=== PATIENT | female | born 1990 | race African-American/Black ===

== ENCOUNTER 2019-05-24 18:03 | Emergency (ER) | payer OTHER, SELFPAY ==
--- NOTE | 2019-05-24 18:11 | ED.NAVMDI ---
HPI - Nausea/Vomiting/Diarrhea General Chief complaint: Nausea/Vomiting/Diarrhea Stated complaint: Possible Food Posioning Time Seen by Provider: 05/24/19 18:11 Source: patient and RN notes reviewed Mode of arrival: ambulatory Limitations: no limitations History of Present Illness HPI Narrative: 28-year-old female presents with concern for red eyes, nausea, vomiting, diarrhea, itchy, burning skin on her face. Reports on Sunday she was seen in the emergency room after having a possible allergic reaction to a new muscle relaxer. Reports at that time she was given Benadryl, steroids. Reports her primary care doctor discontinued the steroids and Benadryl later this week because they were not helping . Patient reports at the beginning of the week she had a fever, had a temperature of 99.5 yesterday. She currently reports bilateral red eyes, nausea, body aches. She reports occasional cough, denies shortness of breath MD elicited complaint: nausea and vomiting Related Data Home Medications Medication Instructions Recorded Confirmed buspirone 10 mg PO DAILY 01/06/19 05/24/19 quetiapine 200 mg PO DAILY 01/07/19 05/24/19 citalopram 40 mg PO DAILY 05/24/19 05/24/19 diphenhydramine HCl [Banophen] 25 mg PO DIRECTED 05/24/19 05/24/19 famotidine 20 mg PO DAILY 05/24/19 05/24/19 multivitamin [Daily-David] 1 tablet PO DAILY 05/24/19 05/24/19 Allergies Allergy/AdvReac Type Severity Reaction Status Date / Time morphine Allergy Unknown Rash Verified 05/24/19 18:09 Penicillins Allergy Unknown rash, Verified 05/24/19 18:09 yeast infection strawberry Allergy Unknown Unknown Verified 05/24/19 18:09 BEES/HORNETS Allergy Unknown Unknown Uncoded 05/24/19 18:09 Review of Systems Review of Systems: Narrative: CONSTITUTIONAL: Denies malaise, chills, sweats. Reports fever. EYES: Denies visual changes. Reports bilateral redness, irritation ENT: Denies rhinorrhea, congestion. Denies sinus pain, otalgia or sore throat. CARDIOVASCULAR: Denies chest pain, palpitations, or edema. RESPIRATORY: Reports occasional cough. Denies dyspnea. GASTROINTESTINAL: Denies abdominal pain. Reports nausea, vomiting, diarrhea SKIN: Reports burning, itchy rash, peeling skin to face. MUSCULOSKELETAL: Reports myalgia. NEUROLOGIC: Reports headache. All systems reviewed & are unremarkable except as noted in HPI and below PMFSH Comments At time of signature, agree with nursing past medical, surgical, social and family history. There is no relevant family history pertinent to the presenting complaint Exam Narrative: Exam Narrative: GENERAL: Well-appearing, well-nourished, and in no acute distress. HEAD: Normocephalic EYES: PERRLA, conjunctivae and sclera injected, no drainage noted ENT: Nares clear, turbinates edematous and erythematous, clear discharge. Mucous membranes moist. TM pearly eric with dull light reflex bilaterally; no tragal tenderness. Oropharynx not erythematous without lesions. Tonsils not enlarged and without exudate, no drooling, no hoarseness, no trismus, uvula midline. NECK: Supple. No lymphadenopathy CHEST: Clear to auscultation, breath sounds equal. No wheezing, rhonchi, rales, or stridor. No respiratory distress, speaks in full sentences. HEART: Regular rate and rhythm. No murmur heard. ABDOMEN: Soft, nontender upon palpation, nondistended, normal active bowel sounds, no palpable or pulsatile masses, no guarding. SKIN: Warm, dry, no rash. Peeling skin noted to face NEURO: Alert and oriented x3. PSYCH: Normal mood and affect Course Course Emergency Course: Discussed with patient that she needs to follow-up with her primary care provider on Sunday for further evaluation, will treat symptomatically today. Also discussed with patient that an order will be sent in for coronavirus testing due to her fever, conjunctivitis, nausea, vomiting, diarrhea. Patient is aware of diagnosis, understands and agrees to treatment plan. Anticipatory guidance
[2019-05-24 18:13] VITALS: BP 91/67; PULSE 110; RESP 16; TEMP 37.2; O2SAT 99
== END 2019-05-24 18:38 | disposition home or self-care (01) ==
PROVIDERS: Emergency Provider Nurse Practitioner
DX: R09.81 Nasal congestion (principal); H10.9 Unspecified conjunctivitis; F20.9 Schizophrenia, unspecified; F32.9 Major depressive disorder, single episode, unspecified
CPT/HCPCS: 99213; G0463

== ENCOUNTER 2019-09-13 19:28 | Emergency (ER) | payer OTHER, MEDICAID, SELFPAY ==
[2019-09-13 19:53] VITALS: BP 102/68; PULSE 77; RESP 16; TEMP 37.4; O2SAT 100
--- NOTE | 2019-09-13 20:13 | ED.GENADULT ---
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 One episode of RT lower quadrant pain 1 day ago none at this time. No treatment. No significant pelvic pain. No dysuria. Denies fever or chills. No concerns for STDs. History of STDs. No new partners. Sexually active. Rosario denies having intercourse since . Denies unprotected intercourse and multiple partners. Does not douche. No exacerbating factors. Denies hematuria or vaginal bleeding. Denies being , LMP unknown recently had an .? No flank pain. Denies nausea, vomiting, and abdominal pain.? Tolerating liquids well.? Remains active. The patient reports she have not been diagnosed with COVID-19. The patient reports she is not waiting for the results of a COVID-19 lab test. The patient reports she do not have fever, chills, weakness, fatigue, or myalgia. The patient reports she do not have a new or worsening cough or shortness of breath. Denies chest pain. The patient reports she do not have any rhinorrhea, congestion, sore throat, and diarrhea. Denies recent traveling. Denies concerns for COVID-19 or exposures been home with limited outdoor exposure except for essential household needs, work, and return home. At this time, patient is not suspected of having COVID-19. Some parts of this dictation were generated by voice recognition software and may contain typographical and/or grammatical inaccuracies. Related Data Home Medications Medication Instructions Recorded Confirmed buspirone 10 mg PO DAILY 01/06/19 09/13/19 citalopram 40 mg PO DAILY 05/24/19 09/13/19 multivitamin [Daily-David] 1 tablet PO DAILY 05/24/19 09/13/19 Allergies Allergy/AdvReac Type Severity Reaction Status Date / Time morphine Allergy Unknown Rash Verified 09/13/19 19:45 Penicillins Allergy Unknown rash, Verified 09/13/19 19:45 yeast infection strawberry Allergy Unknown Unknown Verified 09/13/19 19:46 BEES/HORNETS Allergy Unknown Unknown Uncoded 09/13/19 19:46 Review of Systems Review of Systems: Narrative: CONSTITUTIONAL: Denies fever, chills, sweats. EYES: Denies visual changes, redness, discharge. ENT: Denies rhinorrhea, congestion, sore throat, otalgia. CARDIOVASCULAR: Denies chest pain, palpitations, edema. RESPIRATORY: Denies dyspnea, wheezing, cough. GASTROINTESTINAL: Denies abdominal pain, nausea, vomiting, diarrhea. GENITOURINARY: Denies hematuria, dysuria (burning, frequent, urgency). Complains of vaginal irritation, abnormal discharge. SKIN: Denies rash or itching. MUSCULOSKELETAL: Denies acute back pain, joint pain, or myalgia. NEUROLOGIC: Denies numbness or focal weakness. PSYCHIATRIC: Denies anxiety or depression. All systems reviewed & are unremarkable except as noted in HPI and below. [facility] Past Medical History Medical History (Updated 09/14/19 @ 00:00 by Miranda Noguera) Back pain Bipolar disorder Depression Schizophrenia Surgical History Surgical History (Updated 09/13/19 @ 20:38 by MARIANNE Zuniga) No significant past surgical history Family History Family History (Updated 09/13/19 @ 20:38 by MARIANNE Zuniga) Mother Depression Social History Social History (Updated 09/13/19 @ 20:39 by MARIANNE Zuniga) Smoking status: Never smoker Tobacco type: cigarettes Second hand tobacco smoke exposure: No Alcohol intake: current Substance use: never Living arrangements: with family Occupation/Education: occupation Addit
== END 2019-09-13 20:39 | disposition home or self-care (01) ==
PROVIDERS: Emergency Provider Nurse Practitioner Family
DX: N76.0 Acute vaginitis (principal); F20.9 Schizophrenia, unspecified; F31.9 Bipolar disorder, unspecified
CPT/HCPCS: 81003; 99213; G0463

== ENCOUNTER 2021-11-04 10:02 | Emergency (ER) | payer OTHER, SELFPAY ==
[2021-11-04 10:18] VITALS: BP 110/66; PULSE 77; RESP 16; TEMP 36.6; O2SAT 99
--- NOTE | 2021-11-04 10:57 | ED.FEMALEGU ---
HPI - Female Genitourinary General Chief complaint: Urogenital-Female Stated complaint: STD EXPOSURE Time Seen by Provider: 11/04/21 10:56 Source: patient and RN notes reviewed Mode of arrival: ambulatory Limitations: no limitations History of Present Illness HPI Narrative: 30-year-old female presents concern for exposure to trichomoniasis. She reports she was informed that her partner she had unprotected sex about Sunday was positive for trichomoniasis. She reports she has no symptoms. She reports she did take Flagyl recently for vaginitis but that was before her new exposure. MD elicited complaint: possible STD Related Data Home Medications Medication Instructions Recorded Confirmed buspirone 10 mg tablet 10 mg PO DAILY 01/06/19 09/13/19 citalopram 40 mg tablet 40 mg PO DAILY 05/24/19 09/13/19 multivitamin (Daily-David tablet) 1 tablet PO DAILY 05/24/19 09/13/19 Allergies Allergy/AdvReac Type Severity Reaction Status Date / Time morphine Allergy Unknown Rash Verified 11/04/21 10:23 Penicillins Allergy Unknown rash, Verified 11/04/21 10:23 yeast infection strawberry Allergy Unknown Unknown Verified 11/04/21 10:23 BEES/HORNETS Allergy Unknown Unknown Uncoded 11/04/21 10:23 Review of Systems Review of Systems: CONSTITUTIONAL: Denies malaise, chills, sweats, or fever. CARDIOVASCULAR: Denies chest pain, palpitations, or edema. RESPIRATORY: Denies cough or dyspnea. GASTROINTESTINAL: Denies abdominal pain, nausea, vomiting, diarrhea GENITOURINARY: Denies dysuria, frequency, urgency, suprapubic pressure. Denies flank pain or hematuria. SKIN: Denies rash or itching. MUSCULOSKELETAL: Denies back pain or myalgia. All systems reviewed & are unremarkable except as noted in HPI and below PMFSH Past Medical History Medical History (Updated 11/04/21 @ 11:06 by Denise Ram NP) Back pain Bipolar disorder Depression Schizophrenia Surgical History Surgical History (Updated 09/13/19 @ 20:38 by MARIANNE Zuniga) No significant past surgical history Family History Family History (Updated 09/13/19 @ 20:38 by MARIANNE Zuniga) Mother Depression Social History Social History (Updated 09/13/19 @ 20:39 by MARIANNE Zuniga) Smoking status: Never smoker Tobacco type: cigarettes Second hand tobacco smoke exposure: No Alcohol intake: current Substance use: never 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 There is no relevant family history pertinent to the presenting complaint Exam Narrative: GENERAL: Well-appearing, well-nourished, and in no acute distress. HEAD: Normocephalic. EYES: PERRLA, conjunctivae clear. NECK: Supple. No lymphadenopathy CHEST: Clear to auscultation. No respiratory distress. HEART: Regular rate and rhythm. SKIN: Warm, dry, no rash. NEURO: Alert and oriented x3. PSYCH: Normal mood and affect Course Course Emergency Course: Discussed treatment options with patient's. Discussed treating for the STD she was exposed to her treating for 3, given the patient is allergic to penicillin, she does not take Rocephin if she does have to. She understands that she may need to return for an injection based on test results. Patient is aware of diagnosis, understands and agrees to treatment plan. Anticipatory guidance given. Patient agrees to follow-up as directed and is aware of reasons to seek care at the emergency department. Portions of this record may have been created with voice recognition software Level of Care: Express Care Visit Vital Signs Vital signs: Vital Signs Temperature 97.9 F 11/04/21 10:18 Pulse Rate 77 11/04/21 10:18 Respiratory Rate 16 11/04/21 10:18 Blood Pressu
== END 2021-11-04 11:13 | disposition home or self-care (01) ==
PROVIDERS: Emergency Provider Nurse Practitioner; PCP Hospitalist
DX: Z20.2 Contact with and (suspected) exposure to infections with a predominantly sexual mode of transmission (principal); F32.A Depression, unspecified
CPT/HCPCS: 81003; 87491; 87591; 87661; 99214; G0463

== ENCOUNTER 2022-01-10 18:49 | Emergency (ER) | payer OTHER, SELFPAY ==
[2022-01-10 19:05] VITALS: BP 114/79; PULSE 75; RESP 16; TEMP 36.9; O2SAT 99
[2022-01-10 19:06] VITALS: BP 114/79; PULSE 75; RESP 16; TEMP 36.9; O2SAT 99
--- NOTE | 2022-01-10 19:39 | ED.FEMALEGU ---
HPI - Female Genitourinary General Chief complaint: Urogenital-Female Stated complaint: uti Time Seen by Provider: 01/10/22 19:40 Source: patient and RN notes reviewed Mode of arrival: ambulatory Limitations: no limitations History of Present Illness HPI Narrative: 31 y/o female presented for c/o urinary frequency and intermittent pain with urination for 2 days. Endorses thick white vaginal discharge. Denies odor, itching, hematuria, abdominal pain, flank pain, f/c. Endorses last sexual encounter the condom broke. Not taking anything for symptoms. LMP 12/20/21 Related Data Home Medications Medication Instructions Recorded Confirmed No Home Medications 01/10/22 01/10/22 Allergies Allergy/AdvReac Type Severity Reaction Status Date / Time morphine Allergy Unknown Rash Verified 01/10/22 19:05 Penicillins Allergy Unknown rash, Verified 01/10/22 19:05 yeast infection strawberry Allergy Unknown Unknown Verified 01/10/22 19:05 BEES/HORNETS Allergy Unknown Unknown Uncoded 01/10/22 19:05 Review of Systems Review of Systems: CONSTITUTIONAL: Denies body aches, fever, chills, or sweats. CARDIOVASCULAR: Denies chest pain, palpitations, or edema. RESPIRATORY: Denies cough or dyspnea. GASTROINTESTINAL: Denies abdominal pain, nausea, vomiting, or diarrhea. GENITOURINARY: Reports dysuria, frequency, urgency, denies hematuria, flank pain SKIN: Denies rash, itching, or wounds. MUSCULOSKELETAL: Denies back pain or myalgia. 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 Please see nursing chart for further information. There is no relevant family history pertinent to the presenting complaint Exam Narrative: GENERAL: Well-appearing ENT: Mucous membranes pink and moist. NECK: Normal AROM. Supple. CHEST: No respiratory distress. Clear to auscultation. HEART: Regular rate and rhythm. ABDOMEN: Soft, nontender, nondistended, normal active bowel sounds. No CVA tenderness MUSCULOSKELETAL: No bony tenderness. SKIN: Warm, dry, no rash. NEURO: No focal deficits. Alert and oriented x3. Gait steady. PSYCH: Normal affect. Course Course Emergency Course: Patient is aware of diagnosis, understands and agrees to treatment plan. Anticipatory guidance given. Patient agrees to follow-up as directed and is aware of reasons to seek care at the emergency department. Portions of this record may have been created with voice recognition software Level of Care: Express Care Visit Vital Signs Vital signs: Vital Signs Temperature 98.4 F 01/10/22 19:05 Pulse Rate 75 01/10/22 19:05 Respiratory Rate 16 01/10/22 19:05 Blood Pressure 114/79 01/10/22 19:05 Pulse Oximetry 99 01/10/22 19:05 Oxygen Delivery Room Air 01/10/22 19:05 Temperature 98.4 F 01/10/22 19:06 Pulse Rate 75 01/10/22 19:06 Respiratory Rate 16 01/10/22 19:06 Blood Pressure 114/79 01/10/22 19:06 Pulse Oximetry 99 01/10/22 19:06 Oxygen Delivery Room Air 01/10/22 19:06 Reviewed MDM - Female Genitourin
== END 2022-01-10 19:51 | disposition home or self-care (01) ==
PROVIDERS: Emergency Provider Nurse Practitioner Family; PCP Hospitalist
DX: R30.0 Dysuria (principal)
CPT/HCPCS: 81003; 87086; 87491; 87591; 87661; 99214; G0463

== ENCOUNTER 2023-02-15 10:05 | Emergency (ER) | payer OTHER, SELFPAY ==
[2023-02-15 10:27] VITALS: BP 107/68; PULSE 90; RESP 16; TEMP 37.6; O2SAT 100
--- NOTE | 2023-02-15 11:05 | ED.URI ---
HPI - URI/Sore Throat General Chief Complaint: Upper Respiratory Infection Stated Complaint: cough,scratchy throat,headache,bodyaches History of Present Illness HPI Narrative: 32-year-old female presented for complaint of nasal drainage, ear pain, dry, and sore throat for about 4 days. Endorses nausea and body aches as. Denies shortness of breath, wheezing, vomiting or fever. She is not taking anything for symptoms. children also with similar symptoms. Related Data Home Medications Medication Instructions Recorded Confirmed No Home Medications 02/15/23 02/15/23 Allergies Allergy/AdvReac Type Severity Reaction Status Date / Time morphine Allergy Unknown Rash Verified 02/15/23 10:34 Penicillins Allergy Unknown rash, Verified 02/15/23 10:34 yeast infection strawberry Allergy Unknown Unknown Verified 02/15/23 10:34 BEES/HORNETS Allergy Unknown Unknown Uncoded 01/10/22 19:05 Review of Systems Review of Systems: ROS per HPI PMFSH Past Medical History Medical History Back pain Bipolar disorder Depression Schizophrenia Surgical History Surgical History No significant past surgical history Family History Family History Mother Depression Social History Social History Smoking status: Never smoker Tobacco type: cigarettes Second hand tobacco smoke exposure: No Alcohol intake: current Substance use: never Living arrangements: with family Occupation/Education: occupation 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 EYES: conjunctivae clear ENT: Mucous membranes moist. TMs pearly eric with normal light reflex bilaterally; no tragal tenderness. Oropharynx milldy erythematous without lesions. Tonsils not enlarged and without exudate. No drooling, no hoarseness, no trismus, uvula midline. No tripod positioning, hot potato voice, or soft palate swelling. NECK: Supple. No lymphadenopathy CHEST: Clear to auscultation, breath sounds equal. No respiratory distress, speaks in full sentences. HEART: Regular rate and rhythm. No murmur heard. SKIN: Warm, dry, no rash. NEURO: Alert and oriented x3. Course Course Emergency Course: Patient is aware of diagnosis, understands and agrees to treatment plan. Anticipatory guidance given. Patient agrees to follow-up as directed and is aware of reasons to seek care at the emergency department. Portions of this record may have been created with voice recognition software Level of Care: Express Care Visit Vital Signs Vital signs: Vital Signs Temperature 99.6 F 02/15/23 10:27 Pulse Rate 90 02/15/23 10:27 Respiratory Rate 16 02/15/23 10:27 Blood Pressure 107/68 02/15/23 10:27 Pulse Oximetry 100 02/15/23 10:27 Oxygen Delivery Room Air 02/15/23 10:27 Temperature 99.6 F 02/15/23 10:27 Pulse Rate 90 02/15/23 10:27 Respiratory Rate 16 02/15/23 10:27 Blood Pressure 107/68 02/15/23 10:27 Pulse Oximetry 100 02/15/23 10:27 Oxygen Delivery Room Air 02/15/23 10:27 MDM - URI/Sore Throat MDM Narrative Medical decision making narrative: Negative flu, COVID, strep result reviewed with pt. Advise supportive treatments. reviewed signs and symptoms to go to the ER. Patient is appropriate for outpatient treatment and follow-up. Differential Diagnosis Differential diagnosis: Likely upper respiratory infection, viral infection and pharyngitis Lab Data Labs: Lab Results 02/15/23 Range/Units Unknown POC SARS CoV-2 Ag Negative (Negative) In
== END 2023-02-15 12:06 | disposition home or self-care (01) ==
PROVIDERS: Emergency Provider Nurse Practitioner Family; PCP Hospitalist
DX: J06.9 Acute upper respiratory infection, unspecified (principal); Z20.822 Contact with and (suspected) exposure to COVID-19
CPT/HCPCS: 87081; 87426; 87804; 87880; 99213; C9803; G0463

== ENCOUNTER 2023-10-16 16:01 | Emergency (ER) | payer BC, OTHER, SELFPAY ==
--- NOTE | 2023-10-16 16:10 | ED.URI ---
HPI - URI/Sore Throat General Chief Complaint: Upper Respiratory Infection Stated Complaint: congestion ,both ears hurt,cough,throat hurts Time Seen by Provider: 10/16/23 16:45 Source: patient and RN notes reviewed Mode of arrival: ambulatory Limitations: no limitations History of Present Illness HPI Narrative: 32-year-old female presents with concern for ear pain, sore throat, dry cough, mucus in her eyes this morning. She denies fever, aches, chills, sweats. Reports her children have similar symptoms. MD elicited complaint: cough and sore throat Related Data Allergies Allergy/AdvReac Type Severity Reaction Status Date / Time Penicillins Allergy Unknown rash, Verified 10/16/23 16:22 yeast infection strawberry Allergy Unknown Unknown Verified 10/16/23 16:22 BEES/HORNETS Allergy Unknown Unknown Uncoded 10/16/23 16:22 Review of Systems Review of Systems: CONSTITUTIONAL: Denies malaise, chills, sweats, or fever. EYES: Denies visual changes, redness. Reports drainage from her eyes this morning ENT: Reports rhinorrhea, congestion, sore throat. CARDIOVASCULAR: Denies chest pain, palpitations, or edema. RESPIRATORY: Reports cough. Denies dyspnea. GASTROINTESTINAL: Denies abdominal pain, nausea, vomiting, diarrhea SKIN: Denies rash or itching. MUSCULOSKELETAL: Denies myalgia. NEUROLOGIC: Denies headache. 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 There is no relevant family history pertinent to the presenting complaint Exam Narrative: GENERAL: Well-appearing, well-nourished, and in no acute distress. HEAD: Normocephalic EYES: PERRLA, conjunctivae clear ENT: Nares clear. Mucous membranes moist. TM pearly eric with dull light reflex bilaterally; no tragal tenderness. Oropharynx not erythematous without lesions. Tonsils not enlarged and without exudate, no drooling, no hoarseness, no trismus, uvula midline. NECK: Supple. No lymphadenopathy CHEST: Clear to auscultation, breath sounds equal. No wheezing, rhonchi, rales, or stridor. No respiratory distress, speaks in full sentences. HEART: Regular rate and rhythm. No murmur heard. SKIN: Warm, dry, no rash. NEURO: Alert and oriented x3. PSYCH: Normal mood and affect Course Course Emergency Course: Patient is aware of diagnosis, understands and agrees to treatment plan. Anticipatory guidance given. Patient agrees to follow-up as directed and is aware of reasons to seek care at the emergency department. Portions of this record may have been created with voice recognition software Level of Care: Express Care Visit Vital Signs Vital signs: Reviewed. MDM - URI/Sore Throat MDM Narrative Medical decision making narrative: Differential diagnosis considered: Wong virus, strep pharyngitis, allergic rhinitis, upper respiratory tract infection, sinusitis, rhinosinusitis, nasopharyngitis. viral pharyngitis, otitis media, otitis externa, pneumonia, bronchiti
[2023-10-16 16:27] VITALS: BP 110/67; PULSE 77; RESP 16; TEMP 37.6; O2SAT 100
[2023-10-16 16:57] LABS: EDSTREPNEGPOS1 Negative
== END 2023-10-16 17:21 | disposition home or self-care (01) ==
PROVIDERS: Emergency Provider Nurse Practitioner; PCP Hospitalist
DX: J06.9 Acute upper respiratory infection, unspecified (principal); Z20.822 Contact with and (suspected) exposure to COVID-19
CPT/HCPCS: 87081; 87426; 87880; 99213; G0463

== ENCOUNTER 2024-05-06 18:46 | Emergency (ER) | payer OTHER, SELFPAY ==
[2024-05-06 19:01] VITALS: BP 117/73; PULSE 73; RESP 16; TEMP 36.4; O2SAT 100
--- NOTE | 2024-05-06 19:27 | ED.EAR ---
HPI - Ear Problem General Chief complaint: Ear Stated complaint: pain on left side of face ear area Time Seen by Provider: 05/06/24 19:42 Source: patient and RN notes reviewed Mode of arrival: ambulatory Limitations: no limitations History of Present Illness HPI Narrative: 33-year-old female presents with concern for left ear pain, decreased hearing. She reports pain in the auricle of the ear and decreased hearing. Reports she feels a bump. She denies drainage. Denies fever, body aches, chills, sweats MD Complaint: ear pain Related Data Home Medications ?Medication ?Instructions ?Recorded ?Confirmed ?Last Taken ?Type buspirone 15 mg tablet mg 05/06/24 Unknown History citalopram 40 mg tablet mg 05/06/24 Unknown History Allergies Allergy/AdvReac Type Severity Reaction Status Date / Time Penicillins Allergy Unknown rash, Verified 05/06/24 19:05 yeast infection strawberry Allergy Unknown Unknown Verified 05/06/24 19:05 BEES/HORNETS Allergy Unknown Unknown Uncoded 05/06/24 19:05 Review of Systems Review of Systems: CONSTITUTIONAL: Denies malaise, chills, sweats, or fever. EYES: Denies visual changes, redness, or discharge. ENT: Denies rhinorrhea, congestion, sinus pain, and sore throat. Reports left ear pain and muffled hearing CARDIOVASCULAR: Denies chest pain, palpitations, or edema. RESPIRATORY: Denies cough. Denies dyspnea. GASTROINTESTINAL: Denies abdominal pain, nausea, vomiting, diarrhea SKIN: Denies rash or itching. MUSCULOSKELETAL: Denies myalgia. NEUROLOGIC: Denies headache. 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 There is no relevant family history pertinent to the presenting complaint Exam Narrative: GENERAL: Well-appearing, well-nourished, and in no acute distress. HEAD: Normocephalic EYES: PERRLA, conjunctivae clear ENT: Nares clear, turbinates edematous, clear discharge. Mucous membranes moist. TM pearly eric with dull light reflex bilaterally; left tragal tenderness with mild EAC edema, left work cold mildly edematous, and erythematous nodule noted at the top of the outer left ear, dried bloody drainage noted. No purulent drainage noted NECK: Supple. No lymphadenopathy CHEST: Clear to auscultation, breath sounds equal. No wheezing, rhonchi, rales, or stridor. No respiratory distress, speaks in full sentences. HEART: Regular rate and rhythm. No murmur heard. SKIN: Warm, dry, no rash. NEURO: Alert and oriented x3. PSYCH: Normal mood and affect Course Course Emergency Course: Patient is aware of diagnosis, understands and agrees to treatment plan. Anticipatory guidance given. Patient agrees to follow-up as directed and is aware of reasons to seek care at the emergency department. Portions of this record may have been created with voice recognition software Level of Care: Express Care Visit Vital Signs Vital signs: Vital Signs Temperature 97.5 F L 05/06/24 19:01 Pulse Rate 73 05/06/24 19:01 Respiratory Rate 16 05/06/24 19:01 Blood Pressure 117/73 05/06/24 19:01 Pulse Oximetry 100 05/06/24 19:01 Oxygen Delivery Room Air 05/06/24 19:01 Temperature 97.5 F L 05/06/24 19:01 Pulse Rate 73 05/06/24 19:01 Respiratory Rate 16 05/06/24 19:01 Blood Pressure 117/73 05/06/24 19:01 Pulse Oximetry 100 05/06/24 19:01 Oxygen Delivery Room Air 05/06/24 19:01 Reviewed. Medical Decision Making MDM Narrative Medical decision making narrative: I evaluated this in the express care. History is obtained from patient who is an independent historian and physical exam was performed.? Available medical records were reviewed. ? Exam findings show no acute concerns or changes; patient is non-toxic appearing and is in no distress. Differential diagnosis considered: Wong virus, strep pharyngitis, allergic rhinitis, upper respiratory tract infection, sinusitis, rhinosinusitis, nasopharyngitis. viral pharyngitis, otitis media, otitis externa, otitis effusion, cerumen impaction, foreign body. Exam findings show no acute concerns or changes; patient is non-toxic appearing and is in no distress. Patient is appropriate for outpatient treatment and follow-up. ? Differential diagnosis and treatment plan were discussed with the patient. Patient agrees with discussion and after shared medical decision making agrees with plan of care. All questions were answered to the patient's satisfaction. Patient is appropriate for outpatient treatment and follow-up. Vital Signs Vital Signs: Vital Signs Temperature 97.5 F L 05/06/24 19:01 Pulse Rate 73 05/06/24 19:01 Respiratory Rate 16 05/06/24 19:01 Blood Pressure 117/73 05/06/24 19:01 Pulse Oximetry 100 05/06/24 19:01 Oxygen Delivery Room Air 05/06/24 19:01 Temperature 97.5 F L 05/06/24 19:01 Pulse Rate 73 05/06/24 19:01 Respiratory Rate 16 05/06/24 19:01 Blood Pressure 117/73 05/06/24 19:01 Pulse Oximetry 100 05/06/24 19:01 Oxygen Delivery Room Air 05/06/24 19:01 Critical Care Time Critical Care Time Critical Care Time: No Discharge Plan Discharge Clinical Impression: Cellulitis of auricle of left ear Patient Disposition: Home, Self-Care Condition: Stable Instructions: Antibiotic Form, Cellulitis (ED) Additional Instructions: Please follow up with your Primary Care Doctor within 48-72 hours - call for an appointment. Apply moist heat 3-4 times daily for 10-15 minutes. Take Motrin 600mg every 8 hours with food for pain. Please take Antibiotics as directed. If you experience any worsening redness, swelling, streaking (red lines), fever or chills please go to the ER Patient Language: Upper Sorbian Prescriptions: New cefdinir 300 mg capsule 300 mg PO Q12H 10 Days Qty: 20 0RF No Action citalopram 40 mg tablet buspirone 15 mg tablet Follow-up/Referrals: Wilfredo,Nika Dobson MD [Primary Care Provider] - Stand Alone Forms: Work/School Release IP Time of Disposition: 19:53
== END 2024-05-06 19:55 | disposition home or self-care (01) ==
PROVIDERS: Emergency Provider Nurse Practitioner; PCP Hospitalist
DX: H60.12 Cellulitis of left external ear (principal)
CPT/HCPCS: 99213; G0463

== ENCOUNTER 2024-05-19 09:06 | Emergency (ER) | payer OTHER, SELFPAY ==
[2024-05-19 09:15] VITALS: BP 113/63; PULSE 81; RESP 20; TEMP 36.5; O2SAT 100
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
== END 2024-05-19 09:40 | disposition short-term general hospital (02) ==
PROVIDERS: Emergency Provider Nurse Practitioner Family; PCP Hospitalist
DX: H53.9 Unspecified visual disturbance (principal); R11.0 Nausea; R51.9 Headache, unspecified; V89.2XXA Person injured in unspecified motor-vehicle accident, traffic, initial encounter
CPT/HCPCS: 99213; G0463

== ENCOUNTER 2024-05-19 10:14 | Emergency (ER) | payer OTHER, SELFPAY ==
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
[2024-05-19 10:41] VITALS: BP 126/70; PULSE 78; RESP 16; TEMP 36.6; O2SAT 100
--- OUTSIDE RECORDS SUMMARY | 2024-05-19 11:31 | XMS_ITS | Encounter Summary ---
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 Name Role Phone Nika Villalobos MD Primary Care Pro vider Encounter Details Date Type Department Care Team (Late st Contact Info) Description 04/25/2024 Results Follow-Up [facility] Obstetrical Gynecology [address] [phone] Cynthia Mota MD [address] [place] [id number] Social History Tobacco Use Types Packs/Day Years Used Date Smoking Tobacco: Never Smokeless Tobacco: Never Alcohol Use Standard Drinks/Week Comments Yes 0 (1 standard drink = 0.6 oz pur e alcohol) occasionally AUDIT-C Answer Date Recorded Q1: How often do you have a drink containing alc ohol? 2-4 times a month 05/31/2023 Q2: How many drinks containi ng alcohol do you have on a typical day when you are drinking? 1 or 2 05/31/2023 Q3: How often do you have si x or more drinks on one occasion? Never 05/31/2023 PHQ-2 Answer Date Recorded PHQ-2 Total Score (If total score is 3 or more points, staff should administer the PHQ-9) 2 12/27/2023 Franklin Depression Scale Answer Date Recorded Franklin Depression Scale Total 6 11/21/2020 The thought of harming myself has occurred to me . Never 11/21/2020 PHQ-9 Answer Date Recorded PHQ-9 Total Score 9 12/27/2023 Personal Safety Answer Date Recorded Have you ever been in or are you currently in a harmful physical or emotional relationship or is someone making you feel afraid or unsafe? 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
--- OUTSIDE RECORDS SUMMARY | 2024-05-19 11:31 | XMS_ITS | Referral Summary ---
Author Organization [facility] at the Medical Office Building Address [address] [place] [phone] Care Team Providers Care Biology Faculty Member Name Role Phone Nika Villalobos MD Primary Care Pro vider Encounters Date Type Department Care Team Description 04/30/2024 Telephone [facility] Obstetrical Gynecology [address] [place] [phone] Cynthia Mota MD 04/25/2024 Telephone [facility] Obstetrical Gynecology [address] [place] [phone] Zenaida Bonilla MA 04/25/2024 Results Follow-Up [facility] Obstetrical Gynecology [address] [facility] [address] [place] [phone] Cynthia Mota MD 04/24/2024 10:25 AM CDT Lab [facility] [address] [place] [phone] Missed 04/21/2024 Telephone [facility] Obstetrical Gynecology [address] [place] [address] [place] [phone] Zenaida Bonilla MA vaginal dicharge/itchng 04/08/2024 10:00 AM AIRCREWMAN Office Visit [facility] Primary Care at [address] [place] [phone] Nika Villalobos MD Migraine without status migrainosus, not intractable, unspecified migraine type (Primary Dx); Iron deficiency anemia, unspecified iron deficiency anemia type; Pre-diabetes; Osteopenia of lumbar spine; Vitamin D deficiency; Seborrheic dermatitis, unspecified; Eczema, unspecified type 04/02/2024 Orders Only [facility] Obstetrical Gynecology [address] [place] [address] [address] [place] [phone] Cynthia Mota MD Positive test (Primary Dx) 03/06/2024 Orders Only [facility] Lab [facility] [place] [address] Nika Villalobos MD 03/06/2024 Telephone [facility] Primary Care at [address] [phone] Nika Villalobos MD Medical Question/Miscellane ous 03/06/2024 11:00 AM AIRCREWMAN Lab [facility] [address] [place] [phone] Need for hepatitis C screening test; Difficulty concentrating; Vitamin D deficiency; Annual physical exam; Abnormal hemoglobin 03/06/2024 10:00 AM AIRCREWMAN Office Visit [facility] Primary Care at [address] [phone] Nika Villalobos MD Concussion without loss of consciousness, subsequent encounter (Primary Dx); Migraine without status migrainosus, not intractable, unspecified migraine type; Difficulty concentrating; Iron deficiency anemia, unspecified iron deficiency anemia type; Annual physical exam; Vitamin D deficiency; Need for hepatitis C screening test 03/04/2024 Nurse Triage [facility] Primary Care at [address] [phone] Nika Villalobos MD 02/25/2024 11:43 PM AIRCREWMAN - 02/26/2024 12:26 AM AIRCREWMAN Emergency [facility] [address] [place] [phone] Fall, initial encounter (Primary Dx); Concussion without loss of consciousness, initial encounter Discharge Disposition: Discharge to home or self care from Last 3 Months Allergies Active Allergy Reactions Criticality Noted Date Comments Venom-Honey Bee Anaphylaxis High 09/23/2019 Penicillin G Rash Medium 03/03/2019 [place] Anaphylaxis High 09/23/2019 Wasp Venom Anaphylaxis High 09/23/2019 Medications tretinoin (RETIN-A) 0.025 % gel APPLY TO AFFECTED AREAS ON THE FACE NIGHTLY. 07/06/19 24 Active magnesium oxide (MAG-OX) 400 mg (241.3 mg elemental magnesium) tabletIndications: hypomagnesemia Take 1 tablet (400 mg total) by mouth daily 90 tablet 3 10/25/19 24 025 Active citalopram (CeleXA) 20 mg tablet Take 1 tablet (20 mg total) by mouth daily 12/13/19 24 Active QUEtiapine (SEROquel) 100 mg tablet Take 1 tablet (100 mg total) by mouth 2 (two) times a day 12/13/19 Active PNV with [id number] 27 mg iron- 1 mg tabletIndications: Annual physical exam Take 1 tablet by mouth daily 90 tablet 3 12/27/19 24 025 Active clindamycin (CLEOCIN T) 1 % lotionIndications: Acne Vulgaris Apply topically 2 (two) times a day 60 mL 12/27/19 24 Active lidocaine (LIDODERM) 5 %Indications:Pain Place 1 patch on the skin daily Use patch for 12 hours on, 12 hours off. Discard after each use 7 patch 02/25/19 25 Active naproxen (NAPROSYN) 500 mg tablet Take 1 tablet (500 mg total) by mouth 2 (two) times a day with meals 30 tablet 02/25/19 25 Active ondansetron ODT (ZOFRAN-ODT) 4 mg disintegrating tablet Take 1 tablet (4 mg total) by mouth every 8 (eight) hours as needed for nausea or vomiting 20 tablet 02/25/19 25 Active orphenadrine ER (NORFLEX) 100 mg 12 hr tabletIndications: Muscle Spasm Take 1 tablet (100 mg total) by mouth 2 (two) times a day for 14 days 28 tablet 02/25/19 25 Active busPIRone (BUSPAR) 15 mg tablet 02/14/19 25 Active ascorbic acid (VITAMIN C) 250 mg tabletIndications: Iron deficiency anemia, unspecified iron deficiency anemia type Take 1 tablet (250 mg total) by mouth every other day With iron 45 tablet 03/06/19 25 Active ferrous sulfate 325 mg (65 mg of elemental iron) tabletIndications: Iron Deficiency Anemia Take 325mg ferrous sulfate every other day. Take with 250mg ascorbic acid tablet of half a glass of orange juice to enhance absorption. Take two hours before, or four hours after, ingestion of antacids/heartb urn. Take separately from calcium-contain ing foods and beverages (milk), calcium supplements, cereals, dietary fiber, tea, coffee, and eggs. 45 tablet 3 03/06/19 25 Active ketoconazole (NIZORAL) 2 % shampooIndications :Seborrheic dermatitis, unspecified Apply topically 2 (two) times a week Apply to damp scalp, lather, leave on 10 minutes, and rinse 120 mL 04/10/19 25 Active clobetasoL (TEMOVATE) 0.05 % external solutionIndication s:Dermatosis of the Scalp Apply topically two times daily as needed to scalp for flaking and itching. Do not apply to face. 50 mL 04/08/19 25 Active SUMAtriptan (IMITREX) 100 mg tabletIndications: Migraine Take 1 tablet (100 mg total) by mouth once as needed for migraine for up to 1 dose May repeat after 2 hours. If requiring 2 doses can take 2 tablets (100mg) at first start of next migraine. Don't take 2 consecutive days and limit to no more than 2 days per week. 9 tablet 04/08/19 25 Active triamcinolone (KENALOG) 0.1 % ointmentIndication s:Eczema, unspecified type Apply topically two times daily as needed for rash on body. Do not apply to face or groin. 80 g 04/08/19 25 Active ergocalciferol (VITAMIN D) 50,000 unit capsuleIndications :Vitamin D deficiency Take 1 capsule (50,000 Units total) by mouth once a week 4 capsule 1 04/08/19 25 025 Active doxycycline (VIBRAMYCIN) 100 mg capsule Take one tablet, by mouth, twice daily for 7 days. 14 tablet 04/22/19 25 Active fluconazole (DIFLUCAN) 150 mg tablet Take 1 tablet (150 mg total) by mouth once for 1 dose 1 tablet 04/26/19 25 025 fluconazole (DIFLUCAN) 150 mg tablet Take 1 tablet (150 mg total) by mouth once for 1 dose 1 tablet 05/01/19 25 025 Active Problems Problem Noted Date Diagnosed Date Pre-diabetes 04/08/2024 Assessment & Plan (04/08/2024 10:22 AM AIRCREWMAN): Lab Results Component Value Date HGBA1C 6.3 (H) 03/06/2024 Uncontrolled Recommend healthy diet/regular exercise Recheck after 3m Acne vulgaris 12/27/2023 Assessment & Plan (12/27/2023 12:06 PM AIRCREWMAN): Refilled topical clindamycin Continue gentle cleanser Discussed risks of topical tretinoin if were to become Annual physical exam 11/04/2020 Assessment & Plan (12/27/2023 12:07 PM AIRCREWMAN): Tracking ovulation for contraception management, recommend PNV daily, discussed does not increase fertility, but decreases risk of defects Assessment & Plan (04/19/2023 6:57 AM AIRCREWMAN): Reviewed PMH & FH Reviewed medications and supplements HCM: orders placed as needed Counseled on healthy lifestyle Assessment & Plan (08/02/2021 6:45 AM CDT): PAP: following with video producer Planning : no, but not avoiding, recommend PNV Sexual transmitted infection testing: declines BP within normal limits PHQ Screening PHQ-9 Total Score: 7 Body mass index is 32.63 kg/m . Discussed diet and exercise Feels safe at home Discussed skin cancer prevention and screening: referral to production clerks supervisor Migraine without status migrainosus, not intract able 10/15/2019 Assessment & Plan (04/08/2024 10:17 AM AIRCREWMAN): Improved Continue magnesium Imitrex as needed, will increase to 100mg Assessment & Plan (03/06/2024 11:04 AM AIRCREWMAN): Uncontrolled, flared with concussion Continue magnesium Will add labetalol daily for prophylaxis Imitrex as needed Assessment & Plan (12/27/2023 12:06 PM AIRCREWMAN): controlled Continue magnesium daily Continue maxalt as needed Assessment & Plan (10/25/2023 9:49 AM CDT): UNcontrolled Side effects to propranolol Start magnesium Continue maxalt as needed Assessment & Plan (04/19/2023 6:58 AM AIRCREWMAN): Stable Taking propranolol as needed Continue maxalt as needed Assessment & Plan (02/28/2023 3:23 PM AIRCREWMAN): Stable Taking propranolol as needed Continue maxalt as needed Assessment & Plan (09/15/2022 2:15 PM CDT): Improved Taking propranolol as needed Will increase maxalt Assessment & Plan (05/18/2022 9:35 AM CDT): Uncontrolled Will start propranolol imitrex as needed Assessment & Plan (07/28/2021 1:34 PM CDT): Uncontrolled Add magnesium for prophylaxis Recommend discussing medications with psychiatry that can help Assessment & Plan (10/15/2019 11:14 AM CDT): Start 400mg magnesium and riboflavin daily Given handout on triggers to avoid Tried reaching psychiatrist Dr. Aguila Pandya to discuss starting topamax, but unable to reach him at this time Chronic midline low back pain without sciatica 0 04/16/2019 Assessment & Plan (04/19/2023 6:58 AM AIRCREWMAN): Upcoming appointment with orthopedics spine Assessment & Plan (07/28/2021 1:35 PM CDT): History of scoliosis, offered spine surgery referral, she defers currently Encouraged to schedule physical therapy, very likely has weak core as just had 5th baby Assessment & Plan (10/15/2019 11:14 AM CDT): Has scoliosis No red flags Not interested in surgery Encouraged patient to start PHYSICAL THERAPY Trial of lidocaine patches Consider muscle relaxers if not improving with above Bipolar 1 disorder 03/03/2019 Assessment & Plan (12/27/2023 12:06 PM AIRCREWMAN): Improved Following with psychiatrist Assessment & Plan (10/25/2023 9:55 AM CDT): Uncontrolled Given information for psychiatrist In meantime will restart previous medications at lower doses Assessment & Plan (04/19/2023 10:46 AM AIRCREWMAN): Working on establishing with psych Assessment & Plan (09/15/2022 2:52 PM CDT): Working on establishing with psych Assessment & Plan (05/18/2022 9:38 AM CDT): Encouraged follow up with psychiatry Assessment & Plan (07/28/2021 1:35 PM CDT): Denies SI Upcoming appointment with psychiatry Can continue atarax as needed Assessment & Plan (06/28/2021 7:05 AM CDT): Currently denies SI/HI States previously had no improvement on seroquel, celexa and buspar Advised to follow up with psychiatry, if unable to see soon can follow up to see what we can do Encouraged to follow up with counselor Assessment & Plan (10/15/2019 11:14 AM CDT): Following with psychiatry, saw recently Assessment & Plan (03/03/2019 3:34 PM AIRCREWMAN): Follows with psychiatry On 200mg seroquel, 40mg celexa and 10mg buspar TID Resolved Problems Problem Noted Date Diagnosed Date Resolved Date with 39 completed weeks gestation 11/19/2020 09/15/2022 Immunizations Immunization Administration Dates Next Due DTaP 07/05/1995, 4,10/15/1992,1991,07/27/1990 HPV9 09/22/2015 Hep B, Adolescent or Pediatric 06/27/2000,1999,10/29/1998 HiB 07/15/1995,10/15/1992,09/12/1991 Influenza, Split 12/23/2009 Influenza, Unspecified 11/22/2023(Deferr ed: Patient Refused),01/08/2023,11/21/2021(Deferred : Patient Refused),11/12/2017(Deferred: Patient Refused) MMR 07/05/1995,07/27/1990 OPV 07/05/1995, 3,09/12/1991,1990 Pfizer SARS-CoV-2 Monovalent Vaccination (12+ Yrs) PURPLE 12/22/2020,09/28/2020 Td, adsorbed 06/06/2004 Tdap 09/01/2020, 7,11/24/2013,2009 Social History Tobacco Use Types Packs/Day Years Used Date Smoking Tobacco: Never Smokeless Tobacco: Never Tobacco Cessation:Counseling Given: Not Answered Alcohol Use Standard Drinks/Week Comments Yes 0 [...] staff should administer the PHQ-9) 2 12/27/2023 [place] Depression Scale Answer Date Recorded [place] Depression Scale Total 6 11/21/2020 The thought [...] on file Legal Sex Female 4:15 AM AIRCREWMAN Gender Identity Female 06/27/2021 10:01 AM CDT Sexual Orientation Straight 06/27/2021 10 :01 AM CDT 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 Not on file Not on f ile Not on file Last Filed Vital Signs Vital Sign Reading Time Taken Comments Blood Pressure 118/68 04/08/2024 10:02 AM AIRCREWMAN Pulse 76 04/08/2024 10:02 AM AIRCREWMAN Temperature 36.8 C (98.3 F) 04/08/2024 10:02 AM AIRCREWMAN Respiratory Rate 18 04/08/2024 10:02 AM AIRCREWMAN Oxygen Saturation 99% 04/08/2024 10:02 AM AIRCREWMAN Inhaled Oxygen Concentration - - Weight 83 kg (183 lb) 04/08/2024 10:02 AM AIRCREWMAN Height 157.5 cm (5' 2 ) 04/08/2024 10:02 AM AIRCREWMAN Body Mass Index 33.47 04/08/2024 10:02 AM AIRCREWMAN Plan of Treatment Not on file Procedures Procedure Name Priority Date/Time Associated Diagnosis Comments HCG, BLOOD, QUANTITATIVE Routine 04/24/2024 10:30 AM CDT Missed IRON PROFILE W/ IBC Routine 03/06/2024 1 1:13 AM AIRCREWMAN Need for hepatitis C screening test EGFR Routine 03/06/2024 11:13 AM AIRCREWMAN Annual physical exam DIFFERENTIAL AUTO Routine 03/06/2024 11: 13 AM AIRCREWMAN Annual physical exam HEMOGLOBIN A1C Routine 03/06/2024 11:13 AM AIRCREWMAN Annual physical exam CBC WITH AUTO DIFFERENTIAL Routine 03/06/2024 11:13 AM AIRCREWMAN Annual physical exam COMPREHENSIVE METABOLIC PANEL Routine 03/06/2024 11:13 AM AIRCREWMAN Annual physical exam THYROID FUNCTION CASCADE Routine 03/06/2024 11:13 AM AIRCREWMAN Annual physical exam LIPID PANEL Routine 03/06/2024 11:13 AM AIRCREWMAN Annual physical exam VITAMIN D 25 HYDROXY Routine 03/06/2024 11:13 AM AIRCREWMAN Vitamin D deficiency VITAMIN B12 Routine 03/06/2024 11:13 AM AIRCREWMAN Difficulty concentrating HEPATITIS C ANTIBODY Routine 03/06/2024 11:13 AM AIRCREWMAN Need for hepatitis C screening test CT HEAD WO CONTRAST ED 02/25/2024 1 0:03 PM AIRCREWMAN XR SPINE LUMBAR 2 OR 3 VIEWS ED 02/25/2024 8:20 PM AIRCREWMAN XR CHEST 1 VIEW ED 02/25/2024 8:19 PM AIRCREWMAN INFLUENZA A/B, RSV, AND COVID-19 PCR Routine 02/25/2024 8:12 PM AIRCREWMAN PAP AND HIGH RISK HPV, REFLEX TO GENOTYPING Routine 08/08/2022 9:29 AM CDT Well woman exam from Last 3 Months or Most Recently Relevant to Health Maintenance Results * hCG, blood, quantitative (04/24/2024 10:30 AM CDT) hCG, quant <5.0 0.0 - 5.0 IUnits/L Comment: Interpretive Data Male: < 5 IU/L Non- premenopausal Female: <5 IU/L The [employer] hCG Beta Quant assay procedure was used. Results from different manufacturers or methods may not be comparable. Serial testing should be performed using the same method. Interpretive Data was last revised on 2023 Testing performed by: [facility], [address] [place] [address]., [id number] Blood 04/24/2024 10:3 0 AM CDT 04/24/2024 12:49 PM CDT Cynthia Mota MD LAB BLOOD ORDERABLES Edit ed Result - Final Performing Organization Address [facility] Co de Phone Number ADAM [address] [place] [address] * eGFR (03/06/2024 11:13 AM AIRCREWMAN) Pathologist [facility] eGFR >90 >=60 mL/min/1. 73 m2 Comment: Interpretive Data Reference Interval Normal >/= 90 mL/min/1.73m2 Mildly decreased* 60 - 89 mL/min/1.73m2 Mildly to moderately decreased 45 - 59 mL/min/1.73m2 Moderately to severely decreased 30 - 44 mL/min/1.73m2 Severely decreased 15 - 29 mL/min/1.73m2 Kidney Failure < 15 mL/min/1.73m2 *Relative to young adult level Estimated glomerular filtration rate is determined by the 2020 CKD-EPI equation recommended by the National Kidney Foundation (A Unifying Approach to GFR Estimation: Recommendations of the NKF-ASK Task Force on Reassessing the Inclusion of Race in Diagnosing Kidney Disease, JASN 2020). The CKD-EPI equation should not be used for patients with unstable renal function and has not been validated in children and those over 70. Current interpretive data was last reviewed 2020. Testing performed by: [address] [id number] Blood 03/06/2024 11:1 3 AM AIRCREWMAN 03/06/2024 12:37 PM AIRCREWMAN us Nika Villalobos MD LAB BLOOD ORDERAB LES Final Result Performing Organization Address City/[facility]/ZIP Co de Phone Number ADAM [address] [place] [address] * Differential, auto (03/06/2024 11:13 AM AIRCREWMAN) [facility] Neutrophil abs 3.1 1.5 - 6.5 K/cumm Comment:Testing performed by : [address] [place]., [address] Imm gran abs 0.0 0.0 - 0.1 K/cumm [facility] Comment:Testing performed by : [address] [address] Lymphocyte abs 2.2 0.8 - 3.3 K/cumm C[facility] Comment:Testing performed by : [address] [address] Monocyte abs 0.4 0.2 - 0.8 K/cumm [facility] Comment:Testing performed by : [address] [address] Eosinophil abs 0.0 0.0 - 0.5 K/cumm [facility] Comment:Testing performed by : [address] [address] Basophil abs 0.0 0.0 - 0.1 K/cumm [facility] Comment:Testing performed by : [address] [address] Neutrophil pct 54.6 % [facility] Comment: Interpretive Data Percent cell count reference ranges are not reported, since discordance with absolute values may lead to misinterpretation of CBC data. Current Interpretive Data was last revised on 2017. Testing performed by: [address] [address] Imm gran pct 0.3 % [facility] Comment: Interpretive Data Percent cell count reference ranges are not reported, since discordance with absolute values may lead to misinterpretation of CBC data. Current Interpretive Data was last revised on 2017. Testing performed by: [address] [address] Lymphocyte pct 37.8 % [facility] Comment: Interpretive Data Percent cell count reference ranges are not reported, since discordance with absolute values may lead to misinterpretation of CBC data. Current Interpretive Data was last revised on 2017. Testing performed by: [address] [address] Monocyte pct 6.3 % [facility] Comment: Interpretive Data Percent cell count reference ranges are not reported, since discordance with absolute values may lead to misinterpretation of CBC data. Current Interpretive Data was last revised on 2017. Testing performed by: [address] [address] Eosinophil pct 0.5 % [facility] Comment: Interpretive Data Percent cell count reference ranges are not reported, since discordance with absolute values may lead to misinterpretation of CBC data. Current Interpretive Data was last revised on 2017. Testing performed by: [address] [address] Basophil pct 0.5 % [facility] Comment: Interpretive Data Percent cell count reference ranges are not reported, since discordance with absolute values may lead to misinterpretation of CBC data. Current Interpretive Data was last revised on 2017. Testing performed by: [address] [address] Blood 03/06/2024 11:1 3 AM AIRCREWMAN 03/06/2024 12:37 PM AIRCREWMAN Nika Villalobos MD LAB BLOOD ORDERAB LES Final Result Performing Organization Address City/[facility]/ZIP Co de Phone Number [address] [place] [address] * Thyroid Function [place] (03/06/2024 11:13 AM AIRCREWMAN) TSH 1.46 0.30 - 4.20 mcIUnit/mL Comment:Testing performed by : [address] [address] Blood 03/06/2024 11:1 3 AM AIRCREWMAN 03/06/2024 12:37 PM AIRCREWMAN Nika Villalobos MD LAB BLOOD ORDERAB LES Final Result Performing Organization Address City/[facility]/ZIP Co de Phone Number [address] [place] [address] * (ABNORMAL) Iron profile w/ IBC (03/06/2024 11:13 AM AIRCREWMAN) Iron 30(L) 35 - 145 mcg/dL Comment:Testing performed by : [address] [address] TIBC 435(H) 250 - 400 mcg/dL ADAM MARIN Comment:Testing performed by : [address] [address] Transferrin saturation 7(L) 20 - 50 % ADAM MARIN Comment:Testing performed by : [address] [address] Blood 03/06/2024 11:1 3 AM AIRCREWMAN 03/06/2024 12:37 PM AIRCREWMAN us Nika Villalobos MD LAB BLOOD ORDERAB LES Final Result ADAM MARIN [facility] [place] [address] * (ABNORMAL) CBC with auto differential (03/06/2024 11:13 AM AIRCREWMAN) [facility] WBC 5.7 3.8 - 9.9 K/cumm Comment:Testing performed by : [address] [address] Hgb 10.5(L) 11.9 - 15.5 g/dL ADAM MARIN Comment:Testing performed by : [address] [address] Hct 33.6(L) 35.6 - 45.5 % ADAM MARIN Comment:Testing performed by : [address] [address] Plt 290 150 - 400 K/cumm ADAM MARIN Comment:Testing performed by : [address] [address] MPV 11.5 9.1 - 12.3 fL ADAM MARIN Comment:Testing performed by : [address] [address] RBC 3.92 3.90 - 5.20 M/cumm ADAM MARIN Comment:Testing performed by : [address] [address] MCV 85.7 81.3 - 96.4 fL ADAM MARIN Comment:Testing performed by : [facility], [address] [place] [address]., [address] MCH 26.8(L) 27.1 - 33.3 pg ADAM Comment:Testing performed by : [address] [address] MCHC 31.3(L) 32.3 - 35.7 g/dL ADAM Comment:Testing performed by : [address] [address] RDW CV 18.6(H) 11.1 - 14.9 % ADAM Comment:Testing performed by : [address] [address] RDW SD 57.7(H) 35.7 - 48.1 fL ADAM Comment:Testing performed by : [address] [address] NRBC abs 0.00 0.00 - 0.01 K/cumm ADAM Comment:Testing performed by : [address] [address] Blood 03/06/2024 11:1 3 AM AIRCREWMAN 03/06/2024 12:37 PM AIRCREWMAN Nika Villalobos MD LAB BLOOD ORDERAB LES Final Result [facility] [address] [facility] Department of Laboratories [place], [place] [id number] * Hepatitis C antibody Blood (03/06/2024 11:13 AM AIRCREWMAN) Hep C Ab Nonreactive Nonreactive Comment: Antibodies to HCV not detected. Does NOT exclude the possibility of recent exposure to HCV. Current interpretive data was last revised on 21 Interpretive Data Nonreactive: Antibodies to HCV not detected. Does NOT exclude the possibility of recent exposure to HCV. Equivocal: Equivocal for HCV antibodies. Supplemental molecular testing will be automatically performed to determine infection status in accordance with current CDC screening recommendations. Reactive: Positive for HCV antibodies. This may represent current or past HCV infection. Supplemental molecular testing will be automatically performed to determine current infection status in accordance with current CDC screening recommendations. Interpretive data was last revised on 2019. Blood 03/06/2024 11:1 3 AM AIRCREWMAN 03/06/2024 2:23 PM AIRCREWMAN us Nika Villalobos MD LAB MICROBIOLOGY - GENERAL ORDERABLES Final Result Performing Organization Address [facility] Co de Phone Number [place] [id number] [place] [address] * (ABNORMAL) Vitamin D 25 hydroxy (03/06/2024 11:13 AM AIRCREWMAN) Vitamin D 25-OH 17.0(L) 30.0 - 80.0 ng/mL Blood 03/06/2024 11:1 3 AM AIRCREWMAN 03/06/2024 2:23 PM AIRCREWMAN Result Coleen Villalobos MD LAB BLOOD ORDERAB LES Final Result Performing Organization Address [facility] de Phone Number CARMEN[address] [address] * (ABNORMAL) Hemoglobin A1c (03/06/2024 11:13 AM AIRCREWMAN) Pathologist [facility] Hgb A1C 6.3(H) 4.0 - 5.6 % Comment:Testing performed by : [address] [address] Estimated Average Glucose 134 mg/dL ADAM Comment: The ADA recommends reporting an estimated Average Glucose (eAG) with all Hemoglobin A1c results using the equation derived from a study of 507 normal and diabetic adults. Minority populations were underrepresented and children were not included. (Diabetes Care 31:9463-9124, 2008). The eAG is not equivalent to a fasting glucose. Testing performed by: [address] [address] Blood 03/06/2024 11:1 3 AM AIRCREWMAN 03/06/2024 12:37 PM AIRCREWMAN us Nika Villalobos MD LAB BLOOD ORDERAB LES Final Result Performing Organization Address City/[facility]/ZIP Co de Phone Number [place] [id number] [facility] [place] [address] * (ABNORMAL) Vitamin B12 (03/06/2024 11:13 AM AIRCREWMAN) Vitamin B12 1,662(H) 230 - 1,250 pg/mL Comment:Testing performed by : [address] [address] Blood 03/06/2024 11:1 3 AM AIRCREWMAN 03/06/2024 12:37 PM AIRCREWMAN Nika Villalobos MD LAB BLOOD ORDERAB LES Final Result Performing Organization Address [facility] Co de Phone Number [place] [phone] [place] [address] * Lipid panel (03/06/2024 11:13 AM AIRCREWMAN) Cholesterol 179 30 - 199 mg/dL Comment: Interpretive Data Ages < or = 19 years Acceptable: <170 mg/dL Borderline high: 170-199 mg/dL High: >or= 200 mg/dL Ages > or = 20 years Desirable: <200 mg/dL Borderline high: 200-239 mg/dL High: >or= 240 mg/dL Literature References: 1. Expert Panel on Integrated Guidelines for Cardiovascular Health and Risk Reduction in Children and Adolescents. Pediatrics 2011;128:S213 2. NCEP Expert Panel. Circulation 2004;110:227 Current Interpretive Data was last revised on 2017. Testing performed by: [address] [address] Triglycerides 101 <=149 mg/dL ADAM Comment: Interpretive Data Ages < or = 9 years Acceptable: <75 mg/dL Borderline high: 75-99 mg/dL High: >or= 100 mg/dL Ages 10 to 20 years Acceptable: <90 mg/dL Borderline high: 90-129 mg/dL High: >or= 130 mg/dL Ages > or = 20 years Desirable: <150 mg/dL Borderline high: 150-199 mg/dL High: 200-499 mg/dL Very high: >or= 499 mg/dL Literature References: 1. Expert Panel on Integrated Guidelines for Cardiovascular Health and Risk Reduction in Children and Adolescents. Pediatrics 2011;128:S213 2. NCEP Expert Panel. Circulation 2004;110:227 Current Interpretive Data was last revised on 2017. Testing performed by: [address] [address] HDL 49 >=40 mg/dL ADAM Comment: Interpretive Data Ages < or = 19 years Acceptable: >45 mg/dL Borderline low: 40-45 mg/dL Low: <40 mg/dL Ages > or = 20 years Desirable: >or= 60 mg/dL Low: <40 mg/dL Literature References: 1. Expert Panel on Integrated Guidelines for Cardiovascular Health and Risk Reduction in Children and Adolescents. Pediatrics 2011;128:S213 2. NCEP Expert Panel. Circulation 2004;110:227 Current Interpretive Data was last revised on 2017. Testing performed by: [address] [address] LDL, calculated 112 <=129 mg/dL ADAM Comment: Interpretive Data Ages < or = 19 years Acceptable: <110 mg/dL Borderline high: 110-129 mg/dL High: >or= 130 mg/dL Ages > or = 20 years Optimal: <100 mg/dL Near optimal: 100-129 mg/dL Borderline high: 130-159 mg/dL High: >160 mg/dL Calculated using the Matheus LDL-C estimating equation. This equation was implemented on 2023. Prior to this date LDL-C was estimated using the Friedewald equation. Literature References: 1. Expert Panel on Integrated Guidelines for Cardiovascular Health and Risk Reduction in Children and Adolescents. Pediatrics 2011;128:S213 2. NCEP Expert Panel. Circulation 2004;110:227 3. Matheus Anna al. SHAHRAM Cardiol. 2020 June 12;5(5):540-548. doi: 10.1001/[email or web address].2020.0013 Current Interpretive Data was last revised on 2023. Testing performed by: [address] [address] Non-HDL Cholesterol 130 mg/dL ADAM Comment: Interpretive Data Ages < or = 19 years Acceptable: <120 mg/dL Borderline high: 120-144 mg/dL High: >145 mg/dL Ages > or = 20 years When triglycerides are >200 mg/dL, Non-HDL cholesterol is a secondary target of therapy with treatment goals that are 30 mg/dL greater than the LDL cholesterol target. Literature References: 1. Expert Panel on Integrated Guidelines for Cardiovascular Health and Risk Reduction in Children and Adolescents. Pediatrics 2011;128:S213 2. NCEP Expert Panel. Circulation 2004;110:227 Current Interpretive Data was last revised on 2017. Testing performed by: [address] [address] Chol/HDL ratio 4 ADAM Comment:Testing performed by : [address] [address] Blood 03/06/2024 11:1 3 AM AIRCREWMAN 03/06/2024 12:37 PM AIRCREWMAN Nika Villalobos MD LAB BLOOD ORDERAB LES Final Result ADAM [address] [facility] [place] [address] * Comprehensive metabolic panel (03/06/2024 11:13 AM AIRCREWMAN) Sodium 138 135 - 145 mmol/L Comment:Testing performed by : [address] [address] Potassium, pl 4.1 3.3 - 4.9 mmol/L ADAM MARIN Comment:Testing performed by : [address] [address] Chloride 102 97 - 110 mmol/L ADAM Comment:Testing performed by : [address] [address] CO2 28 22 - 32 mmol/L ADAM MARIN Comment:Testing performed by : [address] [address] Anion gap 8 2 - 15 mmol/L ADAM MARIN Comment:Testing performed by : [address] [address] BUN 14 6 - 25 mg/dL ADAM Comment:Testing performed by : [address] [address] Creatinine 0.64 0.60 - 1.10 mg/dL ADAM Comment:Testing performed by : [address] [address] Glucose 91 70 - 199 mg/dL [facility] Comment: Interpretive Data Fasting glucose >/= 126 mg/dl is diagnostic for diabetes. Fasting is defined as no caloric intake for at least 8 hours. Fasting glucose between 100 mg/dl to 125 mg/dl is diagnostic of prediabetes. In a patient with classic symptoms of hyperglycemia or hyperglycemic crisis, a random glucose >/= 200 mg/dl is diagnostic for diabetes. In the absence of unequivocal hyperglycemia, results should be confirmed by repeat testing. The classification and Diagnosis of Diabetes Diabetes Care 202; 46: S19-S40. Current interpretive data was last revised 2022. Testing performed by: [address] [address] Calcium 9.9 8.5 - 10.3 mg/dL [facility] Comment:Testing performed by : [address] [address] Bilirubin, total 0.2 0.1 - 1.2 mg/dL [facility] Comment:Testing performed by : [address] [address] Protein, pl 7.9 6.5 - 8.5 g/dL ADAM Comment:Testing performed by : [address] [address] Albumin 4.2 3.5 - 5.0 g/dL [facility] Comment:Testing performed by : [address] [address] Alk phos 71 40 - 130 Units/L ADAM Comment:Testing performed by : [address] [address] ALT 15 7 - 45 Units/L ADAM Comment:Testing performed by : [address] [address] AST 28 10 - 45 Units/L ADAM Comment:Testing performed by : [place] [address], [place]., [address] Blood 03/06/2024 11:1 3 AM AIRCREWMAN 03/06/2024 12:37 PM AIRCREWMAN us Nika Villalobos MD LAB BLOOD ORDERAB LES Final Result ADAM [address] [facility] [place] [address] * CT Head WO Contrast (02/25/2024 10:03 PM AIRCREWMAN) Anatomical Region Laterality Modality Head and Neck N/A Computed Tomogra phy 02/25/2024 10:2 4 PM AIRCREWMAN Narrative 02/25/2024 10:25 PM AIRCREWMAN EXAM DESCRIPTION: CT HEAD WO CONTRAST REASON FOR STUDY: Head trauma, moderate-severe Pt here with c/o fall on , pt states she slipped on black ice and fell on her back and hit her head, pt states she was dazed, denies loc, pt states since she has been having back pain and headache, pt states pain 8/10, pt states she is 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, 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 TECHNIQUE: Axial images acquired through the brain without intravenous contrast. Images stored on PACS. Automated exposure control was used as a dose optimization technique for this examination. COMPARISON: None FINDINGS: The study is significantly hampered metallic artifact from external devices. BRAIN: No hemorrhage, edema or mass effect. No recent infarct. Normal white matter. EXTRA-AXIAL SPACES: No fluid collections. No masses. CALVARIUM: No fracture. SINUSES/MASTOIDS: No fluid or mucosal thickening. ORBITS: No significant abnormality. OTHER: No other significant abnormality. IMPRESSION: No acute intracranial findings. THIS IS AN ELECTRONICALLY VERIFIED FINAL REPORT 02/25/2024 10:25 PM - Electronically signed by Martín Bolivar M.D. 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 TECHNIQUE: Axial images acquired through the brain without intravenous contrast. Images stored on PACS. Automated exposure control was used asa dose optimization technique for this examination. COMPARISON: None FINDINGS: The study is significantly hampered metallic artifact fromexternal devices. BRAIN: No hemorrhage, edema or mass effect. No recent infarct. Normal white matter. EXTRA-AXIAL SPACES: No fluid collections. No masses. CALVARIUM: No fracture. SINUSES/MASTOIDS: No fluid or mucosal thickening. ORBITS: No significant abnormality. OTHER: No other significant abnormality. IMPRESSION: No acute intracranial findings. THIS IS AN ELECTRONICALLY VERIFIED FINAL REPORT 02/25/2024 10:25 PM - Electronically signed by Martín Bolivar M.D. T: Report ID: [id number] Reading Location: [place] [address] [address] PROCEDURES Final Resu lt * XR Spine Lumbar 2 or 3 Views (02/25/2024 8:20 PM AIRCREWMAN) Anatomical Region Laterality Modality Spine N/A Computed Radiogr aphy 02/25/2024 8:55 PM AIRCREWMAN Narrative 02/25/2024 8:57 PM AIRCREWMAN EXAM DESCRIPTION: XR SPINE LUMBAR 2 OR 3 VIEWS REASON FOR STUDY: back pain Pain to lower back post fall on ice x4 days TECHNIQUE: 3 radiographic view(s) of the lumbar spine. COMPARISON: 04/16/2019 FINDINGS: ALIGNMENT: Mild dextroscoliosis centered in the mid lumbar spine is noted VERTEBRAE: Vertebral bodies of normal height. The bones are somewhat osteopenic DISCS: Disc height well-maintained. SOFT TISSUES: Within normal limits. IMPRESSION: No acute spinal abnormality. Osteopenia and mild scoliosis is noted THIS IS AN ELECTRONICALLY VERIFIED FINAL REPORT 02/25/2024 8:57 PM - Electronically signed by Martín Bolivar M.D. KH T: Report ID: [id number] Reading Location: [place] [address] Procedure Note Martín Bolivar MD - 02/25/2024 EXAM DESCRIPTION: XR SPINE LUMBAR 2 OR 3 VIEWS REASON FOR STUDY: back pain Pain to lower back post fall on ice x4 days TECHNIQUE: 3 radiographic view(s) of the lumbar spine. COMPARISON: 04/16/2019 FINDINGS: ALIGNMENT: Mild dextroscoliosis centered in the mid lumbar spineis noted VERTEBRAE: Vertebral bodies of normal height. The bones are somewhatosteopenic DISCS: Disc height well-maintained. SOFT TISSUES: Within normal limits. IMPRESSION: No acute spinal abnormality. Osteopenia and mild scoliosisis noted THIS IS AN ELECTRONICALLY VERIFIED FINAL REPORT 02/25/2024 8:57 PM - Electronically signed by Martín Bolivar M.D. KH T: Report ID: [id number] Reading Location: [place] [address] us [facility] IMG XR PROCEDURES Final Resu lt * XR Chest 1 Vw Portable (02/25/2024 8:19 PM AIRCREWMAN) Anatomical Region Laterality Modality Body, Chest N/A Computed Radiogr aphy 02/25/2024 8:55 PM AIRCREWMAN Narrative 02/25/2024 8:55 PM AIRCREWMAN EXAM DESCRIPTION: XR CHEST 1 VIEW REASON FOR STUDY: Cough Intermittent cp x10 days TECHNIQUE: Single radiographic view(s) of the chest. COMPARISON: None FINDINGS: LUNGS: Allowing for overlying soft tissues, the lungs appear grossly clear. No consolidation or effusion is seen. HEART/MEDIASTINUM: Cardiac silhouette normal in size. Mediastinal and hilar contours appear normal. LINES/TUBES: None. BONES: No acute osseous abnormality. IMPRESSION: No acute cardiopulmonary abnormality. THIS IS AN ELECTRONICALLY VERIFIED FINAL REPORT 02/25/2024 8:55 PM - Electronically signed by Martín GERARD T: Report ID: [id number] Reading Location: [place] [address] Procedure Note Martín Bolivar MD - 02/25/2024 EXAM DESCRIPTION: XR CHEST 1 VIEW REASON FOR STUDY: Cough Intermittent cp x10 days TECHNIQUE: Single radiographic view(s) of the chest. COMPARISON: None FINDINGS: LUNGS: Allowing for overlying soft tissues, the lungs appear grossly clear. No consolidation or effusion is seen. HEART/MEDIASTINUM: Cardiac silhouette normal in size. Mediastinal andhilar contours appear normal. LINES/TUBES: None. BONES: No acute osseous abnormality. IMPRESSION: No acute cardiopulmonary abnormality. THIS IS AN ELECTRONICALLY VERIFIED FINAL REPORT 02/25/2024 8:55 PM - Electronically signed by Martín Bolivar M.D. KH T: Report ID: [id number] Reading Location: [place] [address] [facility] XR PROCEDURES Final Resu lt * Influenza A/B, RSV, and COVID-19 PCR Nasopharyngeal (02/25/2024 8:12 PM AIRCREWMAN) COVID-19 RNA Negative Negative Influenza A RNA Negative Negative ADAM Influenza B RNA Negative Negative ADAM RSV RNA Negative Negative ADAM Comment: Interpretive data: Testing performed by [facility]. This test is performed using the [employer] Xpert Xpress CoV-2/Flu/RSV plus assay. This is a multiplex, real-time reverse transcriptase PCR assay intended for the qualitative detection of nucleic acid from SARS-CoV-2, influenza A, influenza B, and respiratory syncytial virus. This assay has been cleared by the [place] Food and Drug administration. The performance characteristics have been verified by the [facility]. Results must be considered in the clinical context, and a negative result does not rule out infection. Interpretive Data last revised 2023 Nasopharyngeal 02/25/2024 8: 12 PM AIRCREWMAN 02/25/2024 8:14 PM AIRCREWMAN Narrative ADAM - 02/25/2024 8:54 PM AIRCREWMAN Is the Patient experiencing symptoms consistent with COVID?->Yes us [facility] LAB MICROBIOLOGY - GENERAL O RDERABLES Final Result ADAM [address] [facility] [place] [address] * Pap and High Risk HPV, reflex to Genotyping (08/08/2022 9:29 AM CDT) Thin prep (Pap test) 08/08/2022 9:29 AM CDT 08/10/2022 9:29 AM CDT Narrative PATHOLOGY [facility] - 08/16/2022 12:41 PM CDT [facility] Department of Pathology [address] [place], [place] [id number] Final Report with Addendum Note to Patients: This report may contain a detailed description of human tissue sent by a health care provider to the laboratory for pathologic evaluation. The content of this report is essential for diagnosis and may provide important critical findings. This information may be unfamiliar to patients to review without a medical professional present. It is advised that the patient review this report in the presence of a health care provider who can answer questions and explain the details. Patient Name: ROSARIO LALA Address: [address] [place] [address] Gender: F : 1990 (Age: 31) Service: Location: [facility] #: [id number] Patient Type: [facility] SPECIMEN Taken: 08/08/2022 Received: 08/10/2022 Accessioned:: 08/11/2022 Reported: 08/16/2022 Physician(s): Cynthia Mota M.D. [facility] Diagnosis: SOURCE OF SPECIMEN SCREENING THIN PREP IMAGED PAP w/ HPV: STATEMENT OF ADEQUACY - Satisfactory for evaluation; endocervical/transformation zone component present GENERAL CATEGORIZATION: - Negative for intraepithelial lesion or malignancy PADMINI Nair(ASCP) Report Electronically Reviewed and Signed Out By MAILE NairASCP) 08/16/2022 12:41:32Addenda: HPV Test Interpretation NEGATIVE for types 16, 18, 31, 33, 35, 39, 45, 51, 52, 56, 58, 59, 66 and 68. Test performed utilizing Gen-Probe Aptima assay. PADMINI Ashley(ASCP)Report Electronically Reviewed and Signed Out By MAILE AshleyASCP) 08/14/2022 11:14:09 Specimen(s) Received: A: SCREENING THIN PREP IMAGED PAP w/ HPV Clinical History: Last Menstrual Period: 07/2022 The Pap test is a screening test used to aid in the detection of cervical cancer and its precursors. It should not be the sole means by which malignant and premalignant lesions are diagnosed. Both false negative and false positive results may occur. It also has poor sensitivity for the detection of endometrial lesions and should not be used to evaluate suspected endometrial abnormalities. For these reasons it is most important to obtain Pap tests at regular intervals. The performance characteristics of some immunohistochemical stains, fluorescence in-situ hybridization tests and immunophenotyping by flow cytometry cited in this report (if any) were determined by the Surgical Pathology Department at [facility] as part of an ongoing supplier quality engineer program and in compliance with federally mandated regulations drawn from the Clinical Laboratory Improvement Act of 1988 (CLIA '88). Some of these tests rely on the use of analyte specific reagents and are subject to specific labeling requirements by the US Food and Drug Administration. Such diagnostic tests may only be performed in a facility that is certified by the Department of Health and Human Services as a high complexity laboratory under CLIA '88. The FDA has determined that such clearance or approval is not necessary. This test is used for clinical purposes. It should not be regarded as investigational or for research. Nevertheless, federal rules concerning the medical use of analyte specific reagents require that the following disclaimer be attached to the report: This test was developed and its performance characteristics determined by the Surgical Pathology Department [facility]. It has not been cleared or approved by the U. S. Food and Drug Administration. Cynthia Mota MD LAB CYTOLOGY ORDERABLES F inal Result PATHOLOGY MB from Last 3 Months or Most Recently Relevant to Health Maintenance Insurance [facility] Advance Directives For more information, please contact: [phone] * Full Code (Latest Code Status on File) Date Activated Date Inactivated Comments 11/19/2020 6:38 PM 11/21/2020 7:29 PM * Full Code Date Activated Date Inactivated Comments 11/19/2020 2:03 AM 11/19/2020 6:38 PM Full CPR in case of cardiopulmonary arrest Care Teams Biology Faculty Member Relationship Specialty Start Date End Date Nika Villalobos MD PCP - General Family Medicine 02/26/19
--- OUTSIDE RECORDS SUMMARY | 2024-05-19 11:31 | XMS_ITS | Encounter Summary ---
Author Organization [facility] Healthcare Address [address] [place] [address] Care Team Providers Care Band Splicer Name Role Phone Nika Villalobos MD Primary Care Pro vider Reason for Visit * Reason Onset Date Comments Concussion 03/04/2024 Encounter Details Date Type Department Care Team ([facility] st Contact Info) Description 03/04/2024 Nurse Triage [facility] Primary Care at [address] [phone] Nika Villalobos MD [address] [place] [phone] Social History Tobacco Use Types Packs/Day [...] staff should administer the PHQ-9) 2 12/27/2023 [place] Depression Scale Answer Date Recorded [place] Depression Scale Total 6 11/21/2020 The thought [...] on file Legal Sex Female 4:15 AM CLERK TELEGRAPH SERVICE Gender Identity Female 06/27/2021 10:01 AM CDT Sexual Orientation Straight 06/27/2021 10 :01 AM CDT 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 Verbalized understanding. K TELEGRAPH SERVICE * Telephone Encounter - Nika Villalobos MD - 03/04/2024 1:17 PM CST Ok to put on at 10 for ED follow up for concussion K TELEGRAPH SERVICE * Telephone Encounter - Karoline Carmona RN - 03/04/2024 12:08 PM CLERK TELEGRAPH SERVICE Patient was seen in ED on 02/25/24 and diagnosed with concussion. She is still having headache (8/10) and ringing of her ears. She states symptoms are not worse but they are not better. 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 No apts today. 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 Patient stated she could come at 10am - unable to scheduleas [facility] apt. Routing to Nika Villalobos MD's office please call patient and follow up on scheduling apt. She might be at work when calling back but said it was okay to leave voicemail. Reason for Disposition SEVERE headache (e.g., excruciating, pain scale 8-10) and not improved after pain medications Protocols used: Concussion (mTBI) Less Than 14 Days Ago Follow-Up [id number] K TELEGRAPH SERVICE * Telephone Encounter - Karoline Carmona RN - 03/04/2024 12:01 PM CLERK TELEGRAPH SERVICE Regarding: Patient seen at ED on 02/25/24 for concussion from fall, no other symptoms. ----- Message from AmigoCAT sent at 03/04/2024 12:01 PM CLERK TELEGRAPH SERVICE ----- Symptom Based Call Chief Complaint(s): Patient seen at ED on 02/25/24 for concussion from fall, no other symptoms. Duration: 02/25/24 What type of symptom(s) is the patient experiencing? Red Flag. Is the patient concerned they are experiencing a medical emergency requiring an ambulance? No Additional Comments: Patient called to schedule follow up from ED, AC attempted to schedule patientand she answered yes to last question asking if patient feels worse after being seen at ED, please advise. Does message need to be routed? Yes-Action Needed K TELEGRAPH SERVICE documented in this encounter Plan of Treatment Not on file documented as of this encounter Visit Diagnoses Not on filedocumented in this encounter Care Teams Band Splicer Relationship Specialty Start Date End Date Nika Villalobos MD PCP - General Family Medicine 02/26/19 documented as of this encounter
--- OUTSIDE RECORDS SUMMARY | 2024-05-19 11:31 | XMS_ITS | Clinical Summary ---
Author Organization [facility] Address [address] [place] [phone] Care Team Providers Care Product Sales Representative Name Role Phone Nika Villalobos MD Primary Care Pro vider Allergies Active Allergy Reactions Criticality Noted Date Comments Venom-Honey Bee Anaphylaxis High 09/23/2019 Penicillin G Rash Medium 03/03/2019 Cushing Anaphylaxis High 09/23/2019 Wasp Venom Anaphylaxis High [...] mouth 2 (two) times a day 12/13/19 24 Active PNV with [id number] 27 mg iron- 1 mg tabletIndications: Annual physical exam Take 1 tablet by mouth daily 90 tablet 3 12/27/19 24 025 Active clindamycin (CLEOCIN T) 1 % lotionIndications: Acne Vulgaris Apply topically 2 (two) times a day 60 mL 11 12/27/19 24 Active lidocaine (LIDODERM) 5 %Indications:Pain [...] every other day With iron 45 tablet 3 03/06/19 25 Active ferrous sulfate 325 mg [...] Do not apply to face. 50 mL 5 04/08/19 25 Active SUMAtriptan (IMITREX) 100 mg [...] than 2 days per week. 9 tablet 5 04/08/19 25 Active triamcinolone (KENALOG) 0.1 % ointmentIndication s:Eczema, unspecified type Apply topically two times daily as needed for rash on body. Do not apply to face or groin. 80 g 5 04/08/19 25 Active ergocalciferol (VITAMIN D) 50,000 [...] 04/08/2024 Assessment & Plan (04/08/2024 10:22 AM AIR MOTOR REPAIRER): Lab Results Component Value Date HGBA1C 6.3 (H) 03/06/2024 Uncontrolled Recommend healthy diet/regular exercise Recheck after 3m Acne vulgaris 12/27/2023 Assessment & Plan (12/27/2023 12:06 PM AIR MOTOR REPAIRER): Refilled topical clindamycin Continue gentle cleanser Discussed risks of topical tretinoin if were to become Annual physical exam 11/04/2020 Assessment & Plan (12/27/2023 12:07 PM AIR MOTOR REPAIRER): Tracking ovulation for contraception management, recommend PNV daily, discussed does not increase fertility, but decreases risk of defects Assessment & Plan (04/19/2023 6:57 AM AIR MOTOR REPAIRER): Reviewed PMH & FH Reviewed medications and supplements HCM: orders placed as needed Counseled on healthy lifestyle Assessment & Plan (08/02/2021 6:45 AM CDT): PAP: following with range manager Planning : no, but not avoiding, recommend PNV Sexual transmitted infection testing: declines BP within normal limits PHQ Screening PHQ-9 Total Score: 7 Body mass index is 32.63 kg/m . Discussed diet and exercise Feels safe at home Discussed skin cancer prevention and screening: referral to media relations specialist Migraine without status migrainosus, not intract able 10/15/2019 Assessment & Plan (04/08/2024 10:17 AM AIR MOTOR REPAIRER): Improved Continue magnesium Imitrex as needed, will increase to 100mg Assessment & Plan (03/06/2024 11:04 AM AIR MOTOR REPAIRER): Uncontrolled, flared with concussion Continue magnesium Will add labetalol daily for prophylaxis Imitrex as needed Assessment & Plan (12/27/2023 12:06 PM AIR MOTOR REPAIRER): controlled Continue magnesium daily Continue maxalt as needed Assessment & Plan (10/25/2023 9:49 AM CDT): UNcontrolled Side effects to propranolol Start magnesium Continue maxalt as needed Assessment & Plan (04/19/2023 6:58 AM AIR MOTOR REPAIRER): Stable Taking propranolol as needed Continue maxalt as needed Assessment & Plan (02/28/2023 3:23 PM AIR MOTOR REPAIRER): Stable Taking propranolol as needed Continue maxalt [...] 04/16/2019 Assessment & Plan (04/19/2023 6:58 AM AIR MOTOR REPAIRER): Upcoming appointment with orthopedics spine Assessment & [...] 03/03/2019 Assessment & Plan (12/27/2023 12:06 PM AIR MOTOR REPAIRER): Improved Following with psychiatrist Assessment & Plan (10/25/2023 9:55 AM CDT): Uncontrolled Given information for psychiatrist In meantime will restart previous medications at lower doses Assessment & Plan (04/19/2023 10:46 AM AIR MOTOR REPAIRER): Working on establishing with psych Assessment & [...] recently Assessment & Plan (03/03/2019 3:34 PM AIR MOTOR REPAIRER): Follows with psychiatry On 200mg seroquel, 40mg celexa and 10mg buspar TID Resolved Problems Problem Noted Date Diagnosed Date Resolved Date with 39 completed weeks gestation 11/19/2020 09/15/2022 Encounters Date Type Department Care Team Description 04/30/2024 Telephone [facility] Obstetrical Gynecology [address] [place] [address] [address] [place] [phone] Cynthia Mota MD 04/25/2024 Telephone [facility] Obstetrical Gynecology [address] [place] [address] [address] [place] [phone] Zenaida Bonilla MA 04/25/2024 Results Follow-Up [facility] Obstetrical Gynecology [address] [facility] [address] [place] [phone] Cynthia Mota MD 04/24/2024 10:25 AM CDT Lab [facility] [address] [place] [id number] Missed 04/21/2024 Telephone [facility] Obstetrical Gynecology [address] [place] [address] [address] [place] [phone] Zenaida Bonilla MA vaginal dicharge/itchng 04/08/2024 10:00 AM AIR MOTOR REPAIRER Office Visit [facility] Primary Care at [address] [place] [phone] Nika Villalobos MD Migraine without status migrainosus, not intractable, unspecified migraine type (Primary Dx); Iron deficiency anemia, unspecified iron deficiency anemia type; Pre-diabetes; Osteopenia of lumbar spine; Vitamin D deficiency; Seborrheic dermatitis, unspecified; Eczema, unspecified type 04/02/2024 Orders Only [facility] Obstetrical Gynecology [address] [phone] Cynthia Mota MD Positive test (Primary Dx) 03/06/2024 11:00 AM AIR MOTOR REPAIRER Lab [facility] Office Building [address] [place] [id number] Need for hepatitis C screening test; Difficulty concentrating; Vitamin D deficiency; Annual physical exam; Abnormal hemoglobin 03/06/2024 10:00 AM AIR MOTOR REPAIRER Office Visit [facility] Primary Care at [address] [phone] Nika Villalobos MD Concussion without loss of consciousness, subsequent encounter (Primary Dx); Migraine without status migrainosus, not intractable, unspecified migraine type; Difficulty concentrating; Iron deficiency anemia, unspecified iron deficiency anemia type; Annual physical exam; Vitamin D deficiency; Need for hepatitis C screening test 03/06/2024 Orders Only [facility] Lab [facility] [place] [address] Nika Villalobos MD 03/06/2024 Telephone [facility] Primary Care at [address] [phone] Nika Villalobos MD Medical Question/Miscellane ous 03/04/2024 Nurse Triage [facility] Primary Care at [address] [phone] Nika Villalobos MD 02/25/2024 11:43 PM AIR MOTOR REPAIRER - 02/26/2024 12:26 AM AIR MOTOR REPAIRER Emergency [address] [address] Fall, initial encounter (Primary Dx); Concussion without loss of consciousness, initial encounter Discharge Disposition: Discharge to home or self care from Last 3 Months Immunizations Immunization Administration Dates Next Due DTaP 07/05/1995, 4,10/15/1992,1991,07/27/1990 HPV9 09/22/2015 Hep B, Adolescent or Pediatric 06/27/2000,1999,10/29/1998 HiB 07/15/1995,10/15/1992,09/12/1991 Influenza, Split 12/23/2009 Influenza, Unspecified 11/22/2023(Deferr ed: Patient Refused),01/08/2023,11/21/2021(Deferred : Patient Refused),11/12/2017(Deferred: Patient Refused) MMR 07/05/1995,07/27/1990 OPV 07/05/1995, 3,09/12/1991,1990 Pfizer SARS-CoV-2 Monovalent Vaccination (12+ Yrs) PURPLE 12/22/2020,09/28/2020 Td, adsorbed 06/06/2004 Tdap 09/01/2020, 7,11/24/2013,2009 Surgical History Surgery Date Site/Laterality Comments WISDOM TOOTH EXTRACTION D&C FIRST TRIMESTER / TX INC OMPLETE / MISSED / SEPTIC / INDUCED Medical History Medical History Date Comments Scoliosis Bipolar 1 disorder (HCC) no meds during Family History Medical History Relation Name Comments Hypertension Father Prostate cancer Maternal Grandfather Hypertension Mother Breast cancer Mother's Sister Ovarian cancer Neg Hx Uterine cancer Neg Hx Relation Name Status Comments Brother Alive Father Alive Maternal Grandfather Mother Alive Mother's Sister Alive Sister Alive Social History Tobacco Use Types Packs/Day Years [...] staff should administer the PHQ-9) 2 12/27/2023 Kalama Depression Scale Answer Date Recorded Kalama Depression Scale Total 6 11/21/2020 The thought [...] on file Legal Sex Female 4:15 AM AIR MOTOR REPAIRER Gender Identity Female 06/27/2021 10:01 AM CDT Sexual Orientation Straight 06/27/2021 10 :01 AM CDT 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 Not on file Not on f ile Not on file Obstetrics History Para Term AB IAB SAB Ectopic Multiple Livin g Live Births 12 5 5 6 1 0 5 5 Date Outcome GA Total Labor Labor/2nd/3rd Weight Sex Type Anes PTL [place] A1 A5 Name Clin 05/2005 AB 12/2005 AB 007 Term 40w 0d 2.637 kg (5 lb 13 oz) M 11/2008 SAB 7w0 d 010 Term 39w 0d 3.062 kg (6 lb 12 oz) F Livin g 03/2012 AB 014 Term 40w 0d 2.551 kg (5 lb 10 oz) M Livin g 017 Term 38w 6d 2.637 kg (5 lb 13 oz) F Vag-S pont Livin g 07/2017 AB 11w 4d 020 AB 021 Term 39w 3d 12h 42m 12h 30m/0h 08m/0h 04m 2.98 kg (6 lb 9.1 oz) M Vag-S pont None N Livin g 8 9 LEE ANTHONY,Quang Salas MD Complications:None Delivery Location:[facility] ([facility]) Comments Last Filed Vital Signs Vital Sign Reading Time Taken Comments Blood Pressure 118/68 04/08/2024 10:02 AM AIR MOTOR REPAIRER Pulse 76 04/08/2024 10:02 AM AIR MOTOR REPAIRER Temperature 36.8 C (98.3 F) 04/08/2024 10:02 AM AIR MOTOR REPAIRER Respiratory Rate 18 04/08/2024 10:02 AM AIR MOTOR REPAIRER Oxygen Saturation 99% 04/08/2024 10:02 AM AIR MOTOR REPAIRER Inhaled Oxygen Concentration - - Weight 83 kg (183 lb) 04/08/2024 10:02 AM AIR MOTOR REPAIRER Height 157.5 cm (5' 2 ) 04/08/2024 10:02 AM AIR MOTOR REPAIRER Body Mass Index 33.47 04/08/2024 10:02 AM AIR MOTOR REPAIRER Plan of Treatment Health Maintenance Due Date Last Done Comments Pneumococcal vaccine <65 (1 of 2 - PCV) 2008 HPV Vaccines (2 - 3-dose series) 10/20/2015 09/22/2015 Covid-19 Vaccine ( season) 2023 12/22/2020, 09/28/2020 Influenza Vaccine (#1) 2024 01/08/2023, 2009 Postponed from 10/14/2023 (Patient declined, but will receive in the future) Regular Well Visit/Exam 18-64 11/07/2024 11/08/2023, 04/19/2023, 08/08/2022, Additional history exists Depression Screening 12/26/2024 12/27/2023, 12/27/2023, 10/25/2023, Additional history exists Cervical Cancer Screening 08/09/2027 08/08/2022, 02/2018 DTaP/Tdap/Td Vaccine (10 - Td or Tdap) 09/01/2030 09/01/2020, 06/21/2016, 11/24/2013, Additional history exists Hepatitis B Screening Completed 06/27/2000 , 01/19/2000, 10/29/1998 Hepatitis C Screening Completed 03/06/2024 Varicella Vaccines Discontinued Procedures Procedure Name Priority Date/Time Associated Diagnosis Comments HCG, BLOOD, QUANTITATIVE Routine 04/24/2024 10:30 AM CDT Missed IRON PROFILE W/ IBC Routine 03/06/2024 1 1:13 AM AIR MOTOR REPAIRER Need for hepatitis C screening test EGFR Routine 03/06/2024 11:13 AM AIR MOTOR REPAIRER Annual physical exam DIFFERENTIAL AUTO Routine 03/06/2024 11: 13 AM AIR MOTOR REPAIRER Annual physical exam HEMOGLOBIN A1C Routine 03/06/2024 11:13 AM AIR MOTOR REPAIRER Annual physical exam CBC WITH AUTO DIFFERENTIAL Routine 03/06/2024 11:13 AM AIR MOTOR REPAIRER Annual physical exam COMPREHENSIVE METABOLIC PANEL Routine 03/06/2024 11:13 AM AIR MOTOR REPAIRER Annual physical exam THYROID FUNCTION CASCADE Routine 03/06/2024 11:13 AM AIR MOTOR REPAIRER Annual physical exam LIPID PANEL Routine 03/06/2024 11:13 AM AIR MOTOR REPAIRER Annual physical exam VITAMIN D 25 HYDROXY Routine 03/06/2024 11:13 AM AIR MOTOR REPAIRER Vitamin D deficiency VITAMIN B12 Routine 03/06/2024 11:13 AM AIR MOTOR REPAIRER Difficulty concentrating HEPATITIS C ANTIBODY Routine 03/06/2024 11:13 AM AIR MOTOR REPAIRER Need for hepatitis C screening test CT HEAD WO CONTRAST ED 02/25/2024 1 0:03 PM AIR MOTOR REPAIRER XR SPINE LUMBAR 2 OR 3 VIEWS ED 02/25/2024 8:20 PM AIR MOTOR REPAIRER XR CHEST 1 VIEW ED 02/25/2024 8:19 PM AIR MOTOR REPAIRER INFLUENZA A/B, RSV, AND COVID-19 PCR Routine 02/25/2024 8:12 PM AIR MOTOR REPAIRER PAP AND HIGH RISK HPV, REFLEX TO [...] last revised on 2023 Testing performed by: [facility], [address] [place] [address]., [address] Blood 04/24/2024 10:3 0 AM CDT 04/24/2024 12:49 PM CDT Cynthia Mota MD LAB BLOOD ORDERABLES Edit ed Result - Final ADAM [address] [facility] [place] [address] * eGFR (03/06/2024 11:13 AM AIR MOTOR REPAIRER) eGFR >90 >=60 mL/min/1. 73 m2 Comment: [...] was last reviewed 2020. Testing performed by: [address] [address] Blood 03/06/2024 11:1 3 AM AIR MOTOR REPAIRER 03/06/2024 12:37 PM AIR MOTOR REPAIRER us Nika Villalobos MD LAB BLOOD ORDERAB LES Final Result [facility] [address] [facility] Department [place] [address] * Differential, auto (03/06/2024 11:13 AM AIR MOTOR REPAIRER) Neutrophil abs 3.1 1.5 - 6.5 K/cumm Comment:Testing performed by : [address] [address] Imm gran abs 0.0 0.0 - 0.1 K/cumm ADAM Comment:Testing performed by : [address] [address] Lymphocyte abs 2.2 0.8 - 3.3 K/cumm ADAM Comment:Testing performed by : [address] [address] Monocyte abs 0.4 0.2 - 0.8 K/cumm ADAM Comment:Testing performed by : [address] [address] Eosinophil abs 0.0 0.0 - 0.5 K/cumm ADAM Comment:Testing performed by : [address] [address] Basophil abs 0.0 0.0 - 0.1 K/cumm ADAM Comment:Testing performed by : [address] [address] Neutrophil pct 54.6 % ADAM Comment: Interpretive Data Percent cell count reference ranges are not reported, since discordance with absolute values may lead to misinterpretation of CBC data. Current Interpretive Data was last revised on 2017. Testing performed by: [address] [address] Imm gran pct 0.3 % ADAM Comment: Interpretive Data Percent cell count reference ranges are not reported, since discordance with absolute values may lead to misinterpretation of CBC data. Current Interpretive Data was last revised on 2017. Testing performed by: [address] [address] Lymphocyte pct 37.8 % [facility] Comment: Interpretive Data Percent cell count reference ranges are not reported, since discordance with absolute values may lead to misinterpretation of CBC data. Current Interpretive Data was last revised on 2017. Testing performed by: [address] [address] Monocyte pct 6.3 % [facility] Comment: Interpretive Data Percent cell count reference ranges are not reported, since discordance with absolute values may lead to misinterpretation of CBC data. Current Interpretive Data was last revised on 2017. Testing performed by: [address] [address] Eosinophil pct 0.5 % [facility] Comment: Interpretive Data Percent cell count reference ranges are not reported, since discordance with absolute values may lead to misinterpretation of CBC data. Current Interpretive Data was last revised on 2017. Testing performed by: [address] [address] Basophil pct 0.5 % [facility] Comment: Interpretive Data Percent cell count reference ranges are not reported, since discordance with absolute values may lead to misinterpretation of CBC data. Current Interpretive Data was last revised on 2017. Testing performed by: [address] [address] Blood 03/06/2024 11:1 3 AM AIR MOTOR REPAIRER 03/06/2024 12:37 PM AIR MOTOR REPAIRER us Nika Villalobos MD LAB BLOOD ORDERAB LES Final Result ADAM MARIN [address] [facility] Department of Laboratories [place], [place] [id number] * Thyroid Function [place] (03/06/2024 11:13 AM AIR MOTOR REPAIRER) TSH 1.46 0.30 - 4.20 mcIUnit/mL Comment:Testing performed by : [address] [address] Blood 03/06/2024 11:1 3 AM AIR MOTOR REPAIRER 03/06/2024 12:37 PM AIR MOTOR REPAIRER Nika Villalobos MD LAB BLOOD ORDERAB LES Final Result Performing Organization Address [facility] de Phone Number ADAM [facility] [place] [address] * (ABNORMAL) Iron profile w/ IBC (03/06/2024 11:13 AM AIR MOTOR REPAIRER) [facility] Iron 30(L) 35 - 145 mcg/dL Comment:Testing performed by : [address] [address] TIBC 435(H) 250 - 400 mcg/dL ADAM Comment:Testing performed by : [address] [address] Transferrin saturation 7(L) 20 - 50 % ADAM Comment:Testing performed by : [address] [address] Blood 03/06/2024 11:1 3 AM AIR MOTOR REPAIRER 03/06/2024 12:37 PM AIR MOTOR REPAIRER Nika Villalobos MD LAB BLOOD ORDERAB LES Final Result Performing Organization Address [facility] Co de Phone Number [place] [phone] [facility] [place] [address] * (ABNORMAL) CBC with auto differential (03/06/2024 11:13 AM AIR MOTOR REPAIRER) [facility] WBC 5.7 3.8 - 9.9 K/cumm Comment:Testing performed by : [address] [address] Hgb 10.5(L) 11.9 - 15.5 g/dL ADMA MARIN Comment:Testing performed by : [address] [address] Hct 33.6(L) 35.6 - 45.5 % ADAM Comment:Testing performed by : [address] [address] Plt 290 150 - 400 K/cumm ADAM Comment:Testing performed by : [address], [address] MPV 11.5 9.1 - 12.3 fL ADAM Comment:Testing performed by : [address], [address] RBC 3.92 3.90 - 5.20 M/cumm ADAM Comment:Testing performed by : [address], [address] MCV 85.7 81.3 - 96.4 fL ADAM Comment:Testing performed by : [address] [address] MCH 26.8(L) 27.1 - 33.3 pg ADAM Comment:Testing performed by : [address], [address] MCHC 31.3(L) 32.3 - 35.7 g/dL ADAM Comment:Testing performed by : [address], [address] RDW CV 18.6(H) 11.1 - 14.9 % ADAM Comment:Testing performed by : [address], [address] RDW SD 57.7(H) 35.7 - 48.1 fL ADAM Comment:Testing performed by : [address], [address] NRBC abs 0.00 0.00 - 0.01 K/cumm ADAM Comment:Testing performed by : [address], [address] Blood 03/06/2024 11:1 3 AM AIR MOTOR REPAIRER 03/06/2024 12:37 PM AIR MOTOR REPAIRER us Nika Villalobos MD LAB BLOOD ORDERAB LES Final Result ADAM MARIN [address] [facility] Department [place] [address] * Hepatitis C antibody Blood (03/06/2024 11:13 AM AIR MOTOR REPAIRER) [facility] Hep C Ab Nonreactive Nonreactive Comment: Antibodies [...] on 2019. Blood 03/06/2024 11:1 3 AM AIR MOTOR REPAIRER 03/06/2024 2:23 PM AIR MOTOR REPAIRER Nika Villalobos MD LAB MICROBIOLOGY - GENERAL ORDERABLES Final Result Performing Organization Address City/[facility]/ZIP Co de Phone Number ADAM [facility] [place] [address] * (ABNORMAL) Vitamin D 25 hydroxy (03/06/2024 11:13 AM AIR MOTOR REPAIRER) [facility] Vitamin D 25-OH 17.0(L) 30.0 - 80.0 ng/mL Blood 03/06/2024 11:1 3 AM AIR MOTOR REPAIRER 03/06/2024 2:23 PM AIR MOTOR REPAIRER Nika Villalobos MD LAB BLOOD ORDERAB LES Final Result Performing Organization Address City/[facility] Co de Phone Number ADAM [facility] [place] [address] * (ABNORMAL) Hemoglobin A1c (03/06/2024 11:13 AM AIR MOTOR REPAIRER) [facility] Hgb A1C 6.3(H) 4.0 - 5.6 % Comment:Testing performed by : [address] [address] Estimated Average Glucose 134 mg/dL ADAM Comment: The ADA recommends reporting an estimated Average Glucose (eAG) with all Hemoglobin A1c results using the equation derived from a study of 507 normal and diabetic adults. Minority populations were underrepresented and children were not included. (Diabetes Care 31:1409-9757, 2008). The eAG is not equivalent to a fasting glucose. Testing performed by: [address] [address] Blood 03/06/2024 11:1 3 AM AIR MOTOR REPAIRER 03/06/2024 12:37 PM AIR MOTOR REPAIRER Nika Villalobos MD LAB BLOOD ORDERAB LES Final Result Performing Organization Address City/[facility] Co de Phone Number [place] [phone] [facility] [place] [address] * (ABNORMAL) Vitamin B12 (03/06/2024 11:13 AM AIR MOTOR REPAIRER) Vitamin B12 1,662(H) 230 - 1,250 pg/mL Comment:Testing performed by : [address] [address] Blood 03/06/2024 11:1 3 AM AIR MOTOR REPAIRER 03/06/2024 12:37 PM AIR MOTOR REPAIRER Nkia Villalobos MD LAB BLOOD ORDERAB LES Final Result Performing Organization Address City/[facility] Co de Phone Number [place] [phone] [facility] [place] [address] * Lipid panel (03/06/2024 11:13 AM AIR MOTOR REPAIRER) Cholesterol 179 30 - 199 mg/dL Comment: [...] last revised on 2017. Testing performed by: [address] [address] Triglycerides 101 <=149 mg/dL ADAM Comment: Interpretive [...] last revised on 2017. Testing performed by: [address] [address] HDL 49 >=40 mg/dL ADAM Comment: Interpretive [...] last revised on 2017. Testing performed by: [address] [address] LDL, calculated 112 <=129 mg/dL ADAM Comment: [...] NCEP Expert Panel. Circulation 2004;110:227 3. Matheus M et al. SHAHRAM Cardiol. 2019June 12;5(5):540-548. doi: 10.1001/jamacardio.2020.0013 Current Interpretive Data was last revised on 2023. Testing performed by: [address] [address] Non-HDL Cholesterol 130 mg/dL ADAM MARIN Comment: Interpretive Data Ages < or = [...] last revised on 2017. Testing performed by: [address] [address] Chol/HDL ratio 4 ADAM MARIN Comment:Testing performed by : [address] [address] Blood 03/06/2024 11:1 3 AM AIR MOTOR REPAIRER 03/06/2024 12:37 PM AIR MOTOR REPAIRER us Nika Villalobos MD LAB BLOOD ORDERAB LES Final Result ADAM MARIN [address] [facility] Department [place] [address] * Comprehensive metabolic panel (03/06/2024 11:13 AM AIR MOTOR REPAIRER) [facility] Signature Sodium 138 135 - 145 mmol/L Comment:Testing performed by : [address] [address] Potassium, pl 4.1 3.3 - 4.9 mmol/L [facility] Comment:Testing performed by : [address] [address] Chloride 102 97 - 110 mmol/L [facility] Comment:Testing performed by : [address], [place]., [address] CO2 28 22 - 32 mmol/L [facility] Comment:Testing performed by : [address], [place]., [address] Anion gap 8 2 - 15 mmol/L [facility] Comment:Testing performed by : [address], [place]., [address] BUN 14 6 - 25 mg/dL [facility] Comment:Testing performed by : [address], [place]., [address] Creatinine 0.64 0.60 - 1.10 mg/dL [facility] Comment:Testing performed by : [address] [address] Glucose 91 70 - 199 mg/dL [facility] Comment: Interpretive Data Fasting glucose >/= 126 [...] was last revised 2022. Testing performed by: [address] [address] Calcium 9.9 8.5 - 10.3 mg/dL [facility] Comment:Testing performed by : [address] [address] Bilirubin, total 0.2 0.1 - 1.2 mg/dL [facility] Comment:Testing performed by : [address] [address] Protein, pl 7.9 6.5 - 8.5 g/dL ADAM Comment:Testing performed by : [address] [address] Albumin 4.2 3.5 - 5.0 g/dL ADAM Comment:Testing performed by : [address] [address] Alk phos 71 40 - 130 Units/L ADAM Comment:Testing performed by : [address] [address] ALT 15 7 - 45 Units/L ADAM Comment:Testing performed by : [address] [address] AST 28 10 - 45 Units/L ADAM Comment:Testing performed by : [address] [address] Blood 03/06/2024 11:1 3 AM AIR MOTOR REPAIRER 03/06/2024 12:37 PM AIR MOTOR REPAIRER Nika Villalobos MD LAB BLOOD ORDERAB LES Final Result [facility] Department [place] [address] * CT Head WO Contrast (02/25/2024 10:03 PM AIR MOTOR REPAIRER) Anatomical Region Laterality Modality Head and Neck N/A Computed Tomogra phy 02/25/2024 10:2 4 PM AIR MOTOR REPAIRER Narrative 02/25/2024 10:25 PM AIR MOTOR REPAIRER EXAM DESCRIPTION: CT HEAD WO CONTRAST REASON [...] 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, 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, 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, [...] 10:25 PM - Electronically signed by Martín GERARD T: Report ID: [id number] Reading Location: [id number] Procedure Note Martín Bolivar MD - 02/25/2024 [...] 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, 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, 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D. KH T: Report ID: [id number] Reading Location: [id number] us [facility] IM[facility] XR PROCEDURES Final Resu lt * XR Chest 1 Vw Portable (02/25/2024 8:19 PM AIR MOTOR REPAIRER) Anatomical Region Laterality Modality Body, Chest N/A Computed Radiogr aphy 02/25/2024 8:55 PM AIR MOTOR REPAIRER Narrative 02/25/2024 8:55 PM AIR MOTOR REPAIRER EXAM DESCRIPTION: XR CHEST 1 VIEW REASON [...] signed by Martín GERARD T: Report ID: [id number] Reading Location: [id number] Procedure Note Martín Bolivar MD - 02/25/2024 [...] signed by Martín GERARD T: Report ID: [id number] Reading Location: [id number] us [facility] IM[facility] XR PROCEDURES Final Resu lt * Influenza A/B, RSV, and COVID-19 PCR Nasopharyngeal (02/25/2024 8:12 PM AIR MOTOR REPAIRER) COVID-19 RNA Negative Negative Influenza A RNA Negative Negative ADAM Influenza B RNA Negative Negative ADAM RSV RNA Negative Negative [facility] Comment: Interpretive data: Testing performed by [facility]. This test is performed using the [employer] Xpert Xpress CoV-2/Flu/RSV plus assay. This is a multiplex, real-time reverse transcriptase PCR assay intended for the qualitative detection of nucleic acid from SARS-CoV-2, influenza A, influenza B, and respiratory syncytial virus. This assay has been cleared by the [place] Food and Drug administration. The performance characteristics have been verified by the [facility]. Results must be considered in the clinical context, and a negative result does not rule out infection. 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 02/25/2024 8:14 PM AIR MOTOR REPAIRER Narrative [facility] - 02/25/2024 8:54 PM AIR MOTOR REPAIRER Is the Patient experiencing symptoms consistent with COVID?->Yes us [facility] LAB MICROBIOLOGY - GENERAL O RDERABLES Final Result [facility] [address] [facility] Department [place] [address] * Pap and High Risk HPV, reflex to Genotyping (08/08/2022 9:29 AM CDT) Thin prep (Pap test) 08/08/2022 9:29 AM CDT 08/10/2022 9:29 AM CDT Narrative PATHOLOGY [facility] - 08/16/2022 12:41 PM CDT [facility] Department of Pathology [address] [place] [id number] Final Report with Addendum Note to Patients: [...] the details. Patient Name: ROSARIO LALA Address: [address] [place] [address] Gender: F : 1990 (Age: 31) Service: Location: N : [id number] [facility] #: [id number] Patient Type: E SPECIMEN Taken: 08/08/2022 Received: 08/10/2022 Accessioned:: 08/11/2022 Reported: 08/16/2022 Physician(s): Cynthia Mota M.D. [facility] Diagnosis: SOURCE OF SPECIMEN SCREENING THIN PREP IMAGED PAP w/ HPV: STATEMENT OF ADEQUACY - Satisfactory for evaluation; endocervical/transformation zone component present GENERAL CATEGORIZATION: - Negative for intraepithelial lesion or malignancy PADMINI Nair(ASCP) Report Electronically Reviewed and Signed Out By PADMINI Nair(ASCP) 08/16/2022 12:41:32Addenda: HPV Test Interpretation NEGATIVE for types 16, 18, 31, 33, 35, 39, 45, 51, 52, 56, 58, 59, 66 and 68. Test performed utilizing Gen-Probe [employer]pt[employer] assay. PADMINI Ashley(ASCP)Report Electronically Reviewed and Signed Out By PADMINI Ashley(ASCP) 08/14/2022 11:14:09 Specimen(s) Received: A: SCREENING THIN [...] determined by the Surgical Pathology Department at [facility] as part of an ongoing corporate quality engineer program and in compliance with [...] characteristics determined by the Surgical Pathology Department [facility]. It has not been cleared or approved by the [place]. Food and Drug Administration. Cynthia Mota MD LAB CYTOLOGY ORDERABLES F inal Result PATHOLOGY [facility] from Last 3 Months or Most Recently Relevant to Health Maintenance Insurance [facility] Advance Directives For more information, please contact: [phone] * Full Code (Latest Code Status on File) Date Activated Date Inactivated Comments 11/19/2020 6:38 PM 11/21/2020 7:29 PM * Full Code Date Activated Date Inactivated Comments 11/19/2020 2:03 AM 11/19/2020 6:38 PM Full CPR in case of cardiopulmonary arrest Care Teams Product Sales Representative Relationship Specialty Start Date End Date Nika Villalobos MD PCP - General Family Medicine 02/26/19
[2024-05-19] MEDS: ACETAMINOPHEN 500 MG TABLET 1000 MG PO (11:54)
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
--- OUTSIDE RECORDS SUMMARY | 2024-05-19 13:56 | XMS_ITS | Encounter Summary ---
Author Organization [facility] Healthcare Address [address] [place] [address] Care Team Providers Care Youth Pastor Name Role Phone Nika Villalobos MD Primary Care Pro vider Encounter Details Date Type Department Care Team (Late st Contact Info) Description 04/25/2024 Results Follow-Up 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
--- OUTSIDE RECORDS SUMMARY | 2024-05-19 13:56 | XMS_ITS | Referral Summary ---
Author Organization [facility] at [facility] Medical Office Building Address [address] [place] [phone] Care Team Providers Care Marketing Database Coordinator Name Role Phone Nika Villalobos MD Primary Care Pro vider Encounters Date Type Department Care Team Description 04/30/2024 Telephone [facility] Obstetrical Gynecology [address] [place] [phone] Cynthia Mota MD 04/25/2024 Telephone [facility] Obstetrical Gynecology [address] [place] [phone] Zenaida Bonilla MA 04/25/2024 Results Follow-Up [facility] Obstetrical Gynecology [address] [facility] [address] [place] [phone] Cynthia Mota MD 04/24/2024 10:25 AM CDT Lab [facility] Medical Office Building [address] [place] [phone] Missed 04/21/2024 Telephone [facility] Obstetrical Gynecology [address] [place] [address] [place] [phone] Zenaida Bonilla MA vaginal dicharge/itchng 04/08/2024 10:00 AM VENDING MACHINE ATTENDANT Office Visit [facility] Primary Care at [address] [place] [phone] Nika Villalobos MD Migraine without status migrainosus, not intractable, unspecified migraine type (Primary Dx); Iron deficiency anemia, unspecified iron deficiency anemia type; Pre-diabetes; Osteopenia of lumbar spine; Vitamin D deficiency; Seborrheic dermatitis, unspecified; Eczema, unspecified type 04/02/2024 Orders Only [facility] Obstetrical Gynecology [address] [place] [address] [address] [place] [phone] Cynthia Mota MD Positive test (Primary Dx) 03/06/2024 Orders Only [facility] Lab [facility] [place] [address] Nika Villalobos MD 03/06/2024 Telephone [facility] Primary Care at [address] [phone] Nika Villalobos MD Medical Question/Miscellane ous 03/06/2024 11:00 AM VENDING MACHINE ATTENDANT Lab [facility] Medical Office Building [address] [place] [phone] Need for hepatitis C screening test; Difficulty concentrating; Vitamin D deficiency; Annual physical exam; Abnormal hemoglobin 03/06/2024 10:00 AM VENDING MACHINE ATTENDANT Office Visit [facility] Primary Care at [address] [phone] Nika Villalobos MD Concussion without loss of consciousness, subsequent encounter (Primary Dx); Migraine without status migrainosus, not intractable, unspecified migraine type; Difficulty concentrating; Iron deficiency anemia, unspecified iron deficiency anemia type; Annual physical exam; Vitamin D deficiency; Need for hepatitis C screening test 03/04/2024 Nurse Triage [facility] Primary Care at [address] [phone] Nika Villalobos MD 02/25/2024 11:43 PM VENDING MACHINE ATTENDANT - 02/26/2024 12:26 AM VENDING MACHINE ATTENDANT Emergency [facility] [address] [place] [phone] Fall, initial encounter (Primary Dx); Concussion without loss of consciousness, initial encounter Discharge Disposition: Discharge to home or self care from Last 3 Months Allergies Active Allergy Reactions Criticality Noted Date Comments Venom-Honey Bee Anaphylaxis High 09/23/2019 Penicillin G Rash Medium 03/03/2019 [place] Anaphylaxis High 09/23/2019 Wasp Venom Anaphylaxis High [...] times a day 12/13/19 Active PNV with [id number] 27 mg iron- 1 mg tabletIndications: Annual [...] 04/08/2024 Assessment & Plan (04/08/2024 10:22 AM VENDING MACHINE ATTENDANT): Lab Results Component Value Date HGBA1C 6.3 (H) 03/06/2024 Uncontrolled Recommend healthy diet/regular exercise Recheck after 3m Acne vulgaris 12/27/2023 Assessment & Plan (12/27/2023 12:06 PM VENDING MACHINE ATTENDANT): Refilled topical clindamycin Continue gentle cleanser Discussed risks of topical tretinoin if were to become Annual physical exam 11/04/2020 Assessment & Plan (12/27/2023 12:07 PM VENDING MACHINE ATTENDANT): Tracking ovulation for contraception management, recommend PNV daily, discussed does not increase fertility, but decreases risk of defects Assessment & Plan (04/19/2023 6:57 AM VENDING MACHINE ATTENDANT): Reviewed PMH & FH Reviewed medications and supplements HCM: orders placed as needed Counseled on healthy lifestyle Assessment & Plan (08/02/2021 6:45 AM CDT): PAP: following with chairman president and chief executive officer Planning : no, but not avoiding, recommend PNV Sexual transmitted infection testing: declines BP within normal limits PHQ Screening PHQ-9 Total Score: 7 Body mass index is 32.63 kg/m . Discussed diet and exercise Feels safe at home Discussed skin cancer prevention and screening: referral to duplex trimmer Migraine without status migrainosus, not intract able 10/15/2019 Assessment & Plan (04/08/2024 10:17 AM VENDING MACHINE ATTENDANT): Improved Continue magnesium Imitrex as needed, will increase to 100mg Assessment & Plan (03/06/2024 11:04 AM VENDING MACHINE ATTENDANT): Uncontrolled, flared with concussion Continue magnesium Will add labetalol daily for prophylaxis Imitrex as needed Assessment & Plan (12/27/2023 12:06 PM VENDING MACHINE ATTENDANT): controlled Continue magnesium daily Continue maxalt as needed Assessment & Plan (10/25/2023 9:49 AM CDT): UNcontrolled Side effects to propranolol Start magnesium Continue maxalt as needed Assessment & Plan (04/19/2023 6:58 AM VENDING MACHINE ATTENDANT): Stable Taking propranolol as needed Continue maxalt as needed Assessment & Plan (02/28/2023 3:23 PM VENDING MACHINE ATTENDANT): Stable Taking propranolol as needed Continue maxalt [...] 04/16/2019 Assessment & Plan (04/19/2023 6:58 AM VENDING MACHINE ATTENDANT): Upcoming appointment with orthopedics spine Assessment & [...] 03/03/2019 Assessment & Plan (12/27/2023 12:06 PM VENDING MACHINE ATTENDANT): Improved Following with psychiatrist Assessment & Plan (10/25/2023 9:55 AM CDT): Uncontrolled Given information for psychiatrist In meantime will restart previous medications at lower doses Assessment & Plan (04/19/2023 10:46 AM VENDING MACHINE ATTENDANT): Working on establishing with psych Assessment & [...] recently Assessment & Plan (03/03/2019 3:34 PM VENDING MACHINE ATTENDANT): Follows with psychiatry On 200mg seroquel, 40mg [...] staff should administer the PHQ-9) 2 12/27/2023 Cody Depression Scale Answer Date Recorded Cody Depression Scale Total 6 11/21/2020 The thought [...] on file Legal Sex Female 4:15 AM VENDING MACHINE ATTENDANT Gender Identity Female 06/27/2021 10:01 AM CDT Sexual Orientation Straight 06/27/2021 10 :01 AM CDT 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 Not on file Not on f ile Not on file Last Filed Vital Signs Vital Sign Reading Time Taken Comments Blood Pressure 118/68 04/08/2024 10:02 AM VENDING MACHINE ATTENDANT Pulse 76 04/08/2024 10:02 AM VENDING MACHINE ATTENDANT Temperature 36.8 C (98.3 F) 04/08/2024 10:02 AM VENDING MACHINE ATTENDANT Respiratory Rate 18 04/08/2024 10:02 AM VENDING MACHINE ATTENDANT Oxygen Saturation 99% 04/08/2024 10:02 AM VENDING MACHINE ATTENDANT Inhaled Oxygen Concentration - - Weight 83 kg (183 lb) 04/08/2024 10:02 AM VENDING MACHINE ATTENDANT Height 157.5 cm (5' 2 ) 04/08/2024 10:02 AM VENDING MACHINE ATTENDANT Body Mass Index 33.47 04/08/2024 10:02 AM VENDING MACHINE ATTENDANT Plan of Treatment Not on file Procedures Procedure Name Priority Date/Time Associated Diagnosis Comments HCG, BLOOD, QUANTITATIVE Routine 04/24/2024 10:30 AM CDT Missed IRON PROFILE W/ IBC Routine 03/06/2024 1 1:13 AM VENDING MACHINE ATTENDANT Need for hepatitis C screening test EGFR Routine 03/06/2024 11:13 AM VENDING MACHINE ATTENDANT Annual physical exam DIFFERENTIAL AUTO Routine 03/06/2024 11: 13 AM VENDING MACHINE ATTENDANT Annual physical exam HEMOGLOBIN A1C Routine 03/06/2024 11:13 AM VENDING MACHINE ATTENDANT Annual physical exam CBC WITH AUTO DIFFERENTIAL Routine 03/06/2024 11:13 AM VENDING MACHINE ATTENDANT Annual physical exam COMPREHENSIVE METABOLIC PANEL Routine 03/06/2024 11:13 AM VENDING MACHINE ATTENDANT Annual physical exam THYROID FUNCTION CASCADE Routine 03/06/2024 11:13 AM VENDING MACHINE ATTENDANT Annual physical exam LIPID PANEL Routine 03/06/2024 11:13 AM VENDING MACHINE ATTENDANT Annual physical exam VITAMIN D 25 HYDROXY Routine 03/06/2024 11:13 AM VENDING MACHINE ATTENDANT Vitamin D deficiency VITAMIN B12 Routine 03/06/2024 11:13 AM VENDING MACHINE ATTENDANT Difficulty concentrating HEPATITIS C ANTIBODY Routine 03/06/2024 11:13 AM VENDING MACHINE ATTENDANT Need for hepatitis C screening test CT HEAD WO CONTRAST ED 02/25/2024 1 0:03 PM VENDING MACHINE ATTENDANT XR SPINE LUMBAR 2 OR 3 VIEWS ED 02/25/2024 8:20 PM VENDING MACHINE ATTENDANT XR CHEST 1 VIEW ED 02/25/2024 8:19 PM VENDING MACHINE ATTENDANT INFLUENZA A/B, RSV, AND COVID-19 PCR Routine 02/25/2024 8:12 PM VENDING MACHINE ATTENDANT PAP AND HIGH RISK HPV, REFLEX TO [...] last revised on 2023 Testing performed by: [facility], [address] [place] [address]., [id number] Blood 04/24/2024 10:3 0 AM CDT 04/24/2024 12:49 PM CDT Cynthia Mota MD LAB BLOOD ORDERABLES Edit ed Result - Final Performing Organization Address [facility] Co de Phone Number ADAM [address] [place] [address] * eGFR (03/06/2024 11:13 AM VENDING MACHINE ATTENDANT) Pathologist [facility] eGFR >90 >=60 mL/min/1. 73 m2 Comment: [...] was last reviewed 2020. Testing performed by: [address] [address] Blood 03/06/2024 11:1 3 AM VENDING MACHINE ATTENDANT 03/06/2024 12:37 PM VENDING MACHINE ATTENDANT us Nika Villalobos MD LAB BLOOD ORDERAB LES Final Result Performing Organization Address City/[facility]/ZIP Co de Phone Number ADAM [address] [place] [address] * Differential, auto (03/06/2024 11:13 AM VENDING MACHINE ATTENDANT) [facility] Neutrophil abs 3.1 1.5 - 6.5 K/cumm Comment:Testing performed by : [address] [place]., [address] Imm gran abs 0.0 0.0 - 0.1 K/cumm [facility] Comment:Testing performed by : [address] [address] Lymphocyte abs 2.2 0.8 - 3.3 K/cumm CERNER Comment:Testing performed by : [address] [address] Monocyte abs 0.4 0.2 - 0.8 K/cumm [facility] Comment:Testing performed by : [address] [address] Eosinophil abs 0.0 0.0 - 0.5 K/cumm [facility] Comment:Testing performed by : [address] [address] Basophil abs 0.0 0.0 - 0.1 K/cumm [facility] Comment:Testing performed by : [address] [address] Neutrophil pct 54.6 % [facility] Comment: Interpretive Data Percent cell count reference ranges are not reported, since discordance with absolute values may lead to misinterpretation of CBC data. Current Interpretive Data was last revised on 2017. Testing performed by: [address] [address] Imm gran pct 0.3 % [facility] Comment: Interpretive Data Percent cell count reference ranges are not reported, since discordance with absolute values may lead to misinterpretation of CBC data. Current Interpretive Data was last revised on 2017. Testing performed by: [address] [address] Lymphocyte pct 37.8 % [facility] Comment: Interpretive Data Percent cell count reference ranges are not reported, since discordance with absolute values may lead to misinterpretation of CBC data. Current Interpretive Data was last revised on 2017. Testing performed by: [address] [address] Monocyte pct 6.3 % [facility] Comment: Interpretive Data Percent cell count reference ranges are not reported, since discordance with absolute values may lead to misinterpretation of CBC data. Current Interpretive Data was last revised on 2017. Testing performed by: [address] [address] Eosinophil pct 0.5 % [facility] Comment: Interpretive Data Percent cell count reference ranges are not reported, since discordance with absolute values may lead to misinterpretation of CBC data. Current Interpretive Data was last revised on 2017. Testing performed by: [address] [address] Basophil pct 0.5 % [facility] Comment: Interpretive Data Percent cell count reference ranges are not reported, since discordance with absolute values may lead to misinterpretation of CBC data. Current Interpretive Data was last revised on 2017. Testing performed by: [address] [address] Blood 03/06/2024 11:1 3 AM VENDING MACHINE ATTENDANT 03/06/2024 12:37 PM VENDING MACHINE ATTENDANT Nika Villalobos MD LAB BLOOD ORDERAB LES Final Result Performing Organization Address City/[facility]/ZIP Co de Phone Number [address] [place] [address] * Thyroid Function Estill (03/06/2024 11:13 AM VENDING MACHINE ATTENDANT) TSH 1.46 0.30 - 4.20 mcIUnit/mL Comment:Testing performed by : [address] [address] Blood 03/06/2024 11:1 3 AM VENDING MACHINE ATTENDANT 03/06/2024 12:37 PM VENDING MACHINE ATTENDANT Nika Villalobos MD LAB BLOOD ORDERAB LES Final Result Performing Organization Address City/[facility]/ZIP Co de Phone Number [address] [place] [address] * (ABNORMAL) Iron profile w/ IBC (03/06/2024 11:13 AM VENDING MACHINE ATTENDANT) Iron 30(L) 35 - 145 mcg/dL Comment:Testing performed by : [address] [address] TIBC 435(H) 250 - 400 mcg/dL ADAM MARIN Comment:Testing performed by : [address] [address] Transferrin saturation 7(L) 20 - 50 % ADAM MARIN Comment:Testing performed by : [address] [address] Blood 03/06/2024 11:1 3 AM VENDING MACHINE ATTENDANT 03/06/2024 12:37 PM VENDING MACHINE ATTENDANT us Nika Villalobos MD LAB BLOOD ORDERAB LES Final Result ADAM MARIN [facility] Department [place] [address] * (ABNORMAL) CBC with auto differential (03/06/2024 11:13 AM VENDING MACHINE ATTENDANT) [facility] WBC 5.7 3.8 - 9.9 K/cumm Comment:Testing performed by : [address] [address] Hgb 10.5(L) 11.9 - 15.5 g/dL ADAM MARIN Comment:Testing performed by : [address] [address] Hct 33.6(L) 35.6 - 45.5 % ADAM MARIN Comment:Testing performed by : [address] [address] Plt 290 150 - 400 K/cumm ADAM MARIN Comment:Testing performed by : [address] [address] MPV 11.5 9.1 - 12.3 fL ADAM MARIN Comment:Testing performed by : [address] [address] RBC 3.92 3.90 - 5.20 M/cumm ADAM MARIN Comment:Testing performed by : [address] [address] MCV 85.7 81.3 - 96.4 fL ADAM MARIN Comment:Testing performed by : [facility], [address] [place] [address]., [address] MCH 26.8(L) 27.1 - 33.3 pg ADAM Comment:Testing performed by : [address] [address] MCHC 31.3(L) 32.3 - 35.7 g/dL ADAM Comment:Testing performed by : [address] [address] RDW CV 18.6(H) 11.1 - 14.9 % ADAM Comment:Testing performed by : [address] [address] RDW SD 57.7(H) 35.7 - 48.1 fL ADAM Comment:Testing performed by : [address] [address] NRBC abs 0.00 0.00 - 0.01 K/cumm ADAM Comment:Testing performed by : [address] [address] Blood 03/06/2024 11:1 3 AM VENDING MACHINE ATTENDANT 03/06/2024 12:37 PM VENDING MACHINE ATTENDANT Nika Villalobos MD LAB BLOOD ORDERAB LES Final Result [facility] [address] [facility] Department of Laboratories [place], [place] [id number] * Hepatitis C antibody Blood (03/06/2024 11:13 AM VENDING MACHINE ATTENDANT) Hep C Ab Nonreactive Nonreactive Comment: Antibodies [...] on 2019. Blood 03/06/2024 11:1 3 AM VENDING MACHINE ATTENDANT 03/06/2024 2:23 PM VENDING MACHINE ATTENDANT us Nika Villalobos MD LAB MICROBIOLOGY - GENERAL ORDERABLES Final Result Performing Organization Address [facility] Co de Phone Number [place] [phone] [place] [address] * (ABNORMAL) Vitamin D 25 hydroxy (03/06/2024 11:13 AM VENDING MACHINE ATTENDANT) Vitamin D 25-OH 17.0(L) 30.0 - 80.0 ng/mL Blood 03/06/2024 11:1 3 AM VENDING MACHINE ATTENDANT 03/06/2024 2:23 PM VENDING MACHINE ATTENDANT Result Coleen Villalobos MD LAB BLOOD ORDERAB LES Final Result Performing Organization Address [facility] de Phone Number CARMEN[address] [address] * (ABNORMAL) Hemoglobin A1c (03/06/2024 11:13 AM VENDING MACHINE ATTENDANT) Pathologist [facility] Hgb A1C 6.3(H) 4.0 - 5.6 % Comment:Testing performed by : [address] [address] Estimated Average Glucose 134 mg/dL ADAM Comment: The ADA recommends reporting an estimated Average Glucose (eAG) with all Hemoglobin A1c results using the equation derived from a study of 507 normal and diabetic adults. Minority populations were underrepresented and children were not included. (Diabetes Care 31:2515-5462, 2008). The eAG is not equivalent to a fasting glucose. Testing performed by: [address] [address] Blood 03/06/2024 11:1 3 AM VENDING MACHINE ATTENDANT 03/06/2024 12:37 PM VENDING MACHINE ATTENDANT us Nika Villalobos MD LAB BLOOD ORDERAB LES Final Result Performing Organization Address City/[facility]/ZIP Co de Phone Number [place] [phone] [facility] [place] [address] * (ABNORMAL) Vitamin B12 (03/06/2024 11:13 AM VENDING MACHINE ATTENDANT) Vitamin B12 1,662(H) 230 - 1,250 pg/mL Comment:Testing performed by : [address] [address] Blood 03/06/2024 11:1 3 AM VENDING MACHINE ATTENDANT 03/06/2024 12:37 PM VENDING MACHINE ATTENDANT Nika Villalobos MD LAB BLOOD ORDERAB LES Final Result Performing Organization Address [facility] Co de Phone Number [place] [phone] [place] [address] * Lipid panel (03/06/2024 11:13 AM VENDING MACHINE ATTENDANT) Cholesterol 179 30 - 199 mg/dL Comment: [...] last revised on 2017. Testing performed by: [address] [address] Triglycerides 101 <=149 mg/dL ADAM Comment: Interpretive [...] last revised on 2017. Testing performed by: [address] [address] HDL 49 >=40 mg/dL ADAM Comment: Interpretive [...] last revised on 2017. Testing performed by: [address] [address] LDL, calculated 112 <=129 mg/dL ADAM Comment: [...] last revised on 2023. Testing performed by: [address] [address] Non-HDL Cholesterol 130 mg/dL ADAM Comment: Interpretive [...] last revised on 2017. Testing performed by: [address] [address] Chol/HDL ratio 4 ADAM Comment:Testing performed by : [address] [address] Blood 03/06/2024 11:1 3 AM VENDING MACHINE ATTENDANT 03/06/2024 12:37 PM VENDING MACHINE ATTENDANT Nika Villalobos MD LAB BLOOD ORDERAB LES Final Result ADAM [address] [facility] Department [place] [address] * Comprehensive metabolic panel (03/06/2024 11:13 AM VENDING MACHINE ATTENDANT) Sodium 138 135 - 145 mmol/L Comment:Testing performed by : [address] [address] Potassium, pl 4.1 3.3 - 4.9 mmol/L ADAM MARIN Comment:Testing performed by : [address] [address] Chloride 102 97 - 110 mmol/L ADAM Comment:Testing performed by : [address] [address] CO2 28 22 - 32 mmol/L ADAM MARIN Comment:Testing performed by : [address] [address] Anion gap 8 2 - 15 mmol/L ADAM MARIN Comment:Testing performed by : [address] [address] BUN 14 6 - 25 mg/dL ADAM Comment:Testing performed by : [address] [address] Creatinine 0.64 0.60 - 1.10 mg/dL ADAM Comment:Testing performed by : [address] [address] Glucose 91 70 - 199 mg/dL [facility] Comment: Interpretive Data Fasting glucose >/= 126 [...] was last revised 2022. Testing performed by: [address] [address] Calcium 9.9 8.5 - 10.3 mg/dL [facility] Comment:Testing performed by : [address] [address] Bilirubin, total 0.2 0.1 - 1.2 mg/dL [facility] Comment:Testing performed by : [address] [address] Protein, pl 7.9 6.5 - 8.5 g/dL ADAM Comment:Testing performed by : [address] [address] Albumin 4.2 3.5 - 5.0 g/dL [facility] Comment:Testing performed by : [address] [address] Alk phos 71 40 - 130 Units/L ADAM Comment:Testing performed by : [address] [address] ALT 15 7 - 45 Units/L ADAM Comment:Testing performed by : [address] [address] AST 28 10 - 45 Units/L ADAM Comment:Testing performed by : [place] [address], [place]., [address] Blood 03/06/2024 11:1 3 AM VENDING MACHINE ATTENDANT 03/06/2024 12:37 PM VENDING MACHINE ATTENDANT us Nika Villalobos MD LAB BLOOD ORDERAB LES Final Result ADAM [address] [facility] Department [place] [address] * CT Head WO Contrast (02/25/2024 10:03 PM VENDING MACHINE ATTENDANT) Anatomical Region Laterality Modality Head and Neck N/A Computed Tomogra phy 02/25/2024 10:2 4 PM VENDING MACHINE ATTENDANT Narrative 02/25/2024 10:25 PM VENDING MACHINE ATTENDANT EXAM DESCRIPTION: CT HEAD WO CONTRAST REASON [...] 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 T: Report ID: [id number] Reading Location: [place] [address] PROCEDURES Final Resu lt * XR Spine Lumbar 2 or 3 Views (02/25/2024 8:20 PM VENDING MACHINE ATTENDANT) Anatomical Region Laterality Modality Spine N/A Computed Radiogr aphy 02/25/2024 8:55 PM VENDING MACHINE ATTENDANT Narrative 02/25/2024 8:57 PM VENDING MACHINE ATTENDANT EXAM DESCRIPTION: XR SPINE LUMBAR 2 OR [...] Martín Bolivar M.D. KH T: Report ID: [id number] Reading Location: [place] [address] Procedure Note Martín Bolivar MD - 02/25/2024 [...] Martín Bolivar M.D. KH T: Report ID: [id number] Reading Location: [place] [address] us [facility] IMG XR PROCEDURES Final Resu lt * XR Chest 1 Vw Portable (02/25/2024 8:19 PM VENDING MACHINE ATTENDANT) Anatomical Region Laterality Modality Body, Chest N/A Computed Radiogr aphy 02/25/2024 8:55 PM VENDING MACHINE ATTENDANT Narrative 02/25/2024 8:55 PM VENDING MACHINE ATTENDANT EXAM DESCRIPTION: XR CHEST 1 VIEW REASON [...] signed by Martín GERARD T: Report ID: [id number] Reading Location: [place] [address] Procedure Note Martín Bolivar MD - 02/25/2024 [...] Martín Bolivar M.D. KH T: Report ID: [id number] Reading Location: [place] [address] [facility] IM XR PROCEDURES Final Resu lt * Influenza A/B, RSV, and COVID-19 PCR Nasopharyngeal (02/25/2024 8:12 PM VENDING MACHINE ATTENDANT) COVID-19 RNA Negative Negative Influenza A RNA Negative Negative ADAM Influenza B RNA Negative Negative ADAM RSV RNA Negative Negative ADAM Comment: Interpretive data: Testing performed by [facility]. This test is performed using the [employer] Xpert Xpress CoV-2/Flu/RSV plus assay. This is a multiplex, real-time reverse transcriptase PCR assay intended for the qualitative detection of nucleic acid from SARS-CoV-2, influenza A, influenza B, and respiratory syncytial virus. This assay has been cleared by the [place] Food and Drug administration. The performance characteristics have been verified by the [facility]. Results must be considered in the clinical context, and a negative result does not rule out infection. Interpretive Data last revised 2023 Nasopharyngeal 02/25/2024 8: 12 PM VENDING MACHINE ATTENDANT 02/25/2024 8:14 PM VENDING MACHINE ATTENDANT Narrative ADAM - 02/25/2024 8:54 PM VENDING MACHINE ATTENDANT Is the Patient experiencing symptoms consistent with COVID?->Yes us [facility] MICROBIOLOGY - GENERAL O RDERABLES Final Result ADAM [address] [facility] Department [place] [address] * Pap and High Risk HPV, reflex to Genotyping (08/08/2022 9:29 AM CDT) Thin prep (Pap test) 08/08/2022 9:29 AM CDT 08/10/2022 9:29 AM CDT Narrative PATHOLOGY [facility] - 08/16/2022 12:41 PM CDT [facility] Department of Pathology [address] [place], [place] [id number] Final Report with Addendum Note to Patients: [...] the details. Patient Name: ROSARIO LALA Address: [address] [place] [address] Gender: F : 1990 (Age: 31) Service: Location: [facility] #: [id number] Patient Type: [facility] SPECIMEN Taken: 08/08/2022 Received: 08/10/2022 Accessioned:: 08/11/2022 Reported: 08/16/2022 Physician(s): Cynthia Mota M.D. [facility] Diagnosis: SOURCE OF SPECIMEN SCREENING THIN PREP [...] determined by the Surgical Pathology Department at [facility] as part of an ongoing assistant manager quality management program and in compliance with federally mandated [...] characteristics determined by the Surgical Pathology Department [facility]. It has not been cleared or approved by the [place] Food and Drug Administration. Cynthia Mota MD LAB CYTOLOGY ORDERABLES F inal Result PATHOLOGY MB from Last 3 Months or Most Recently Relevant to Health Maintenance Insurance [facility] Advance Directives For more information, please contact: [phone] * Full Code (Latest Code Status on File) Date Activated Date Inactivated Comments 11/19/2020 6:38 PM 11/21/2020 7:29 PM * Full Code Date Activated Date Inactivated Comments 11/19/2020 2:03 AM 11/19/2020 6:38 PM Full CPR in case of cardiopulmonary arrest Care Teams Marketing Database Coordinator Relationship Specialty Start Date End Date Nika Villalobos MD PCP - General Family Medicine 02/26/19
--- OUTSIDE RECORDS SUMMARY | 2024-05-19 13:56 | XMS_ITS | Clinical Summary ---
Author Organization [facility] Address [address] [place] [phone] Care Team Providers Care Oceanographic Meteorologist Name Role Phone Nika Villalobos MD Primary Care Pro vider Allergies Active Allergy Reactions Criticality Noted Date Comments Venom-Honey Bee Anaphylaxis High 09/23/2019 Penicillin G Rash Medium 03/03/2019 Thornton Anaphylaxis High 09/23/2019 Wasp Venom Anaphylaxis High [...] a day 12/13/19 24 Active PNV with [id number] 27 mg iron- 1 mg tabletIndications: Annual [...] 04/08/2024 Assessment & Plan (04/08/2024 10:22 AM DIRECTOR PART): Lab Results Component Value Date HGBA1C 6.3 (H) 03/06/2024 Uncontrolled Recommend healthy diet/regular exercise Recheck after 3m Acne vulgaris 12/27/2023 Assessment & Plan (12/27/2023 12:06 PM DIRECTOR PART): Refilled topical clindamycin Continue gentle cleanser Discussed risks of topical tretinoin if were to become Annual physical exam 11/04/2020 Assessment & Plan (12/27/2023 12:07 PM DIRECTOR PART): Tracking ovulation for contraception management, recommend PNV daily, discussed does not increase fertility, but decreases risk of defects Assessment & Plan (04/19/2023 6:57 AM DIRECTOR PART): Reviewed PMH & FH Reviewed medications and supplements HCM: orders placed as needed Counseled on healthy lifestyle Assessment & Plan (08/02/2021 6:45 AM CDT): PAP: following with manager customs Planning : no, but not avoiding, recommend PNV Sexual transmitted infection testing: declines BP within normal limits PHQ Screening PHQ-9 Total Score: 7 Body mass index is 32.63 kg/m . Discussed diet and exercise Feels safe at home Discussed skin cancer prevention and screening: referral to project management intern Migraine without status migrainosus, not intract able 10/15/2019 Assessment & Plan (04/08/2024 10:17 AM DIRECTOR PART): Improved Continue magnesium Imitrex as needed, will increase to 100mg Assessment & Plan (03/06/2024 11:04 AM DIRECTOR PART): Uncontrolled, flared with concussion Continue magnesium Will add labetalol daily for prophylaxis Imitrex as needed Assessment & Plan (12/27/2023 12:06 PM DIRECTOR PART): controlled Continue magnesium daily Continue maxalt as needed Assessment & Plan (10/25/2023 9:49 AM CDT): UNcontrolled Side effects to propranolol Start magnesium Continue maxalt as needed Assessment & Plan (04/19/2023 6:58 AM DIRECTOR PART): Stable Taking propranolol as needed Continue maxalt as needed Assessment & Plan (02/28/2023 3:23 PM DIRECTOR PART): Stable Taking propranolol as needed Continue maxalt [...] 04/16/2019 Assessment & Plan (04/19/2023 6:58 AM DIRECTOR PART): Upcoming appointment with orthopedics spine Assessment & [...] 03/03/2019 Assessment & Plan (12/27/2023 12:06 PM DIRECTOR PART): Improved Following with psychiatrist Assessment & Plan (10/25/2023 9:55 AM CDT): Uncontrolled Given information for psychiatrist In meantime will restart previous medications at lower doses Assessment & Plan (04/19/2023 10:46 AM DIRECTOR PART): Working on establishing with psych Assessment & [...] recently Assessment & Plan (03/03/2019 3:34 PM DIRECTOR PART): Follows with psychiatry On 200mg seroquel, 40mg celexa and 10mg buspar TID Resolved Problems Problem Noted Date Diagnosed Date Resolved Date with 39 completed weeks gestation 11/19/2020 09/15/2022 Encounters Date Type Department Care Team Description 04/30/2024 Telephone [facility] [address] [place] [address] [address] [place] [phone] Cynthia Mota MD 04/25/2024 Telephone [facility] [address] [place] [address] [address] [place] [phone] Zenaida Bonilla MA 04/25/2024 Results Follow-Up [facility] [address] [facility] [address] [place] [phone] Cynthia Mota MD 04/24/2024 10:25 AM CDT Lab [facility] [address] [place] [phone] Missed 04/21/2024 Telephone [facility] [address] [place] [address] [address] [place] [phone] Zenaida Bonilla MA vaginal dicharge/itchng 04/08/2024 10:00 AM DIRECTOR PART Office Visit [facility] [address] [place] [phone] Nika Villalobos MD Migraine without status migrainosus, not intractable, unspecified migraine type (Primary Dx); Iron deficiency anemia, unspecified iron deficiency anemia type; Pre-diabetes; Osteopenia of lumbar spine; Vitamin D deficiency; Seborrheic dermatitis, unspecified; Eczema, unspecified type 04/02/2024 Orders Only [facility] [address] [phone] Cynthia Mota MD Positive test (Primary Dx) 03/06/2024 11:00 AM DIRECTOR PART Lab [facility] Office Building [address] [place] [address] Need for hepatitis C screening test; Difficulty concentrating; Vitamin D deficiency; Annual physical exam; Abnormal hemoglobin 03/06/2024 10:00 AM DIRECTOR PART Office Visit [facility] at [address] [phone] Nika Villalobos MD Concussion without loss of consciousness, subsequent encounter (Primary Dx); Migraine without status migrainosus, not intractable, unspecified migraine type; Difficulty concentrating; Iron deficiency anemia, unspecified iron deficiency anemia type; Annual physical exam; Vitamin D deficiency; Need for hepatitis C screening test 03/06/2024 Orders Only [facility] Lab [facility] [place] [address] Nika Villalobos MD 03/06/2024 Telephone [facility] at [address] [phone] Nika Villalobos MD Medical Question/Miscellane ous 03/04/2024 Nurse Triage [facility] at [address] [phone] Nika Villalobos MD 02/25/2024 11:43 PM DIRECTOR PART - 02/26/2024 12:26 AM DIRECTOR PART Emergency [address] [address] Fall, initial encounter (Primary Dx); Concussion without [...] staff should administer the PHQ-9) 2 12/27/2023 [place] Depression Scale Answer Date Recorded [place] Depression Scale Total 6 11/21/2020 The thought [...] on file Legal Sex Female 4:15 AM DIRECTOR PART Gender Identity Female 06/27/2021 10:01 AM CDT Sexual Orientation Straight 06/27/2021 10 :01 AM CDT 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 Not on file Not on f [...] MD Complications:None Delivery Location:[facility] ([facility]) Comments Last Filed Vital Signs Vital Sign Reading Time Taken Comments Blood Pressure 118/68 04/08/2024 10:02 AM DIRECTOR PART Pulse 76 04/08/2024 10:02 AM DIRECTOR PART Temperature 36.8 C (98.3 F) 04/08/2024 10:02 AM DIRECTOR PART Respiratory Rate 18 04/08/2024 10:02 AM DIRECTOR PART Oxygen Saturation 99% 04/08/2024 10:02 AM DIRECTOR PART Inhaled Oxygen Concentration - - Weight 83 kg (183 lb) 04/08/2024 10:02 AM DIRECTOR PART Height 157.5 cm (5' 2 ) 04/08/2024 10:02 AM DIRECTOR PART Body Mass Index 33.47 04/08/2024 10:02 AM DIRECTOR PART Plan of Treatment Health Maintenance Due Date [...] W/ IBC Routine 03/06/2024 1 1:13 AM DIRECTOR PART Need for hepatitis C screening test EGFR Routine 03/06/2024 11:13 AM DIRECTOR PART Annual physical exam DIFFERENTIAL AUTO Routine 03/06/2024 11: 13 AM DIRECTOR PART Annual physical exam HEMOGLOBIN A1C Routine 03/06/2024 11:13 AM DIRECTOR PART Annual physical exam CBC WITH AUTO DIFFERENTIAL Routine 03/06/2024 11:13 AM DIRECTOR PART Annual physical exam COMPREHENSIVE METABOLIC PANEL Routine 03/06/2024 11:13 AM DIRECTOR PART Annual physical exam THYROID FUNCTION CASCADE Routine 03/06/2024 11:13 AM DIRECTOR PART Annual physical exam LIPID PANEL Routine 03/06/2024 11:13 AM DIRECTOR PART Annual physical exam VITAMIN D 25 HYDROXY Routine 03/06/2024 11:13 AM DIRECTOR PART Vitamin D deficiency VITAMIN B12 Routine 03/06/2024 11:13 AM DIRECTOR PART Difficulty concentrating HEPATITIS C ANTIBODY Routine 03/06/2024 11:13 AM DIRECTOR PART Need for hepatitis C screening test CT HEAD WO CONTRAST ED 02/25/2024 1 0:03 PM DIRECTOR PART XR SPINE LUMBAR 2 OR 3 VIEWS ED 02/25/2024 8:20 PM DIRECTOR PART XR CHEST 1 VIEW ED 02/25/2024 8:19 PM DIRECTOR PART INFLUENZA A/B, RSV, AND COVID-19 PCR Routine 02/25/2024 8:12 PM DIRECTOR PART PAP AND HIGH RISK HPV, REFLEX TO [...] last revised on 2023 Testing performed by: [facility], [address] [place] [address]., [address] Blood 04/24/2024 10:3 0 AM CDT 04/24/2024 12:49 PM CDT Cynthia Mota MD LAB BLOOD ORDERABLES Edit ed Result - Final ADAM [address] [facility] Department [place] [address] * eGFR (03/06/2024 11:13 AM DIRECTOR PART) eGFR >90 >=60 mL/min/1. 73 m2 Comment: [...] was last reviewed 2020. Testing performed by: [address] [address] Blood 03/06/2024 11:1 3 AM DIRECTOR PART 03/06/2024 12:37 PM DIRECTOR PART us Nika Villalobos MD LAB BLOOD ORDERAB LES Final Result [facility] [address] [facility] Department [place] [address] * Differential, auto (03/06/2024 11:13 AM DIRECTOR PART) Neutrophil abs 3.1 1.5 - 6.5 K/cumm Comment:Testing performed by : [address] [address] Imm gran abs 0.0 0.0 - 0.1 K/cumm ADAM Comment:Testing performed by : [address] [address] Lymphocyte abs 2.2 0.8 - 3.3 K/cumm ADAM Comment:Testing performed by : [address] [address] Monocyte abs 0.4 0.2 - 0.8 K/cumm ADAM Comment:Testing performed by : [address] [address] Eosinophil abs 0.0 0.0 - 0.5 K/cumm ADAM Comment:Testing performed by : [address] [address] Basophil abs 0.0 0.0 - 0.1 K/cumm ADAM Comment:Testing performed by : [address] [address] Neutrophil pct 54.6 % ADAM Comment: Interpretive Data Percent cell count reference ranges are not reported, since discordance with absolute values may lead to misinterpretation of CBC data. Current Interpretive Data was last revised on 2017. Testing performed by: [address] [address] Imm gran pct 0.3 % ADAM Comment: Interpretive Data Percent cell count reference ranges are not reported, since discordance with absolute values may lead to misinterpretation of CBC data. Current Interpretive Data was last revised on 2017. Testing performed by: [address] [address] Lymphocyte pct 37.8 % [facility] Comment: Interpretive Data Percent cell count reference ranges are not reported, since discordance with absolute values may lead to misinterpretation of CBC data. Current Interpretive Data was last revised on 2017. Testing performed by: [address] [address] Monocyte pct 6.3 % [facility] Comment: Interpretive Data Percent cell count reference ranges are not reported, since discordance with absolute values may lead to misinterpretation of CBC data. Current Interpretive Data was last revised on 2017. Testing performed by: [address] [address] Eosinophil pct 0.5 % [facility] Comment: Interpretive Data Percent cell count reference ranges are not reported, since discordance with absolute values may lead to misinterpretation of CBC data. Current Interpretive Data was last revised on 2017. Testing performed by: [address] [address] Basophil pct 0.5 % [facility] Comment: Interpretive Data Percent cell count reference ranges are not reported, since discordance with absolute values may lead to misinterpretation of CBC data. Current Interpretive Data was last revised on 2017. Testing performed by: [address] [address] Blood 03/06/2024 11:1 3 AM DIRECTOR PART 03/06/2024 12:37 PM DIRECTOR PART us Nika Villalobos MD LAB BLOOD ORDERAB LES Final Result [facility] [address] [facility] Department of Laboratories [place], [place] [id number] * Thyroid Function Mcminn (03/06/2024 11:13 AM DIRECTOR PART) TSH 1.46 0.30 - 4.20 mcIUnit/mL Comment:Testing performed by : [address] [address] Blood 03/06/2024 11:1 3 AM DIRECTOR PART 03/06/2024 12:37 PM DIRECTOR PART Nika Villalobos MD LAB BLOOD ORDERAB LES Final Result Performing Organization Address [facility] de Phone Number ADAM [facility] [place] [address] * (ABNORMAL) Iron profile w/ IBC (03/06/2024 11:13 AM DIRECTOR PART) [facility] Iron 30(L) 35 - 145 mcg/dL Comment:Testing performed by : [address] [address] TIBC 435(H) 250 - 400 mcg/dL ADAM Comment:Testing performed by : [address] [address] Transferrin saturation 7(L) 20 - 50 % ADAM Comment:Testing performed by : [address] [address] Blood 03/06/2024 11:1 3 AM DIRECTOR PART 03/06/2024 12:37 PM DIRECTOR PART Nika Villalobos MD LAB BLOOD ORDERAB LES Final Result Performing Organization Address [facility] Co de Phone Number [place] [phone] [facility] [place] [address] * (ABNORMAL) CBC with auto differential (03/06/2024 11:13 AM DIRECTOR PART) [facility] WBC 5.7 3.8 - 9.9 K/cumm Comment:Testing performed by : [address] [address] Hgb 10.5(L) 11.9 - 15.5 g/dL ADAM MARIN Comment:Testing performed by : [address] [address] Hct 33.6(L) 35.6 - 45.5 % ADAM Comment:Testing performed by : [address] [address] Plt 290 150 - 400 K/cumm ADAM Comment:Testing performed by : [address], [address] MPV 11.5 9.1 - 12.3 fL ADAM Comment:Testing performed by : [address], [address] RBC 3.92 3.90 - 5.20 M/cumm ADAM Comment:Testing performed by : [address], [address] MCV 85.7 81.3 - 96.4 fL ADAM Comment:Testing performed by : [address] [address] MCH 26.8(L) 27.1 - 33.3 pg ADAM Comment:Testing performed by : [address], [address] MCHC 31.3(L) 32.3 - 35.7 g/dL ADAM Comment:Testing performed by : [address], [address] RDW CV 18.6(H) 11.1 - 14.9 % ADAM Comment:Testing performed by : [address], [address] RDW SD 57.7(H) 35.7 - 48.1 fL ADAM Comment:Testing performed by : [address], [address] NRBC abs 0.00 0.00 - 0.01 K/cumm ADAM Comment:Testing performed by : [address], [address] Blood 03/06/2024 11:1 3 AM DIRECTOR PART 03/06/2024 12:37 PM DIRECTOR PART us Nika Villalobos MD LAB BLOOD ORDERAB LES Final Result [facility] [address] [facility] Department [place] [address] * Hepatitis C antibody Blood (03/06/2024 11:13 AM DIRECTOR PART) [facility] Hep C Ab Nonreactive Nonreactive Comment: Antibodies [...] on 2019. Blood 03/06/2024 11:1 3 AM DIRECTOR PART 03/06/2024 2:23 PM DIRECTOR PART Nika Villalobos MD LAB MICROBIOLOGY - GENERAL ORDERABLES Final Result Performing Organization Address City/[facility]/ZIP Co de Phone Number ADAM [facility] [address] * (ABNORMAL) Vitamin D 25 hydroxy (03/06/2024 11:13 AM DIRECTOR PART) [facility] Vitamin D 25-OH 17.0(L) 30.0 - 80.0 ng/mL Blood 03/06/2024 11:1 3 AM DIRECTOR PART 03/06/2024 2:23 PM DIRECTOR PART Nika Villalobos MD LAB BLOOD ORDERAB LES Final Result Performing Organization Address City/[facility] Co de Phone Number ADAM [facility] [place] [address] * (ABNORMAL) Hemoglobin A1c (03/06/2024 11:13 AM DIRECTOR PART) [facility] Hgb A1C 6.3(H) 4.0 - 5.6 % Comment:Testing performed by : [address] [address] Estimated Average Glucose 134 mg/dL ADAM Comment: The ADA recommends reporting an estimated Average Glucose (eAG) with all Hemoglobin A1c results using the equation derived from a study of 507 normal and diabetic adults. Minority populations were underrepresented and children were not included. (Diabetes Care 31:8079-2404, 2008). The eAG is not equivalent to a fasting glucose. Testing performed by: [address] [address] Blood 03/06/2024 11:1 3 AM DIRECTOR PART 03/06/2024 12:37 PM DIRECTOR PART Nika Villalobos MD LAB BLOOD ORDERAB LES Final Result Performing Organization Address City/[facility] Co de Phone Number [place] [phone] [facility] [address] * (ABNORMAL) Vitamin B12 (03/06/2024 11:13 AM DIRECTOR PART) Vitamin B12 1,662(H) 230 - 1,250 pg/mL Comment:Testing performed by : [address] [address] Blood 03/06/2024 11:1 3 AM DIRECTOR PART 03/06/2024 12:37 PM DIRECTOR PART Nika Villalobos MD LAB BLOOD ORDERAB LES Final Result Performing Organization Address City/[facility] Co de Phone Number [place] [phone] [facility] [place] [address] * Lipid panel (03/06/2024 11:13 AM DIRECTOR PART) Cholesterol 179 30 - 199 mg/dL Comment: [...] last revised on 2017. Testing performed by: [address] [address] Triglycerides 101 <=149 mg/dL ADAM Comment: Interpretive [...] last revised on 2017. Testing performed by: [address] [address] HDL 49 >=40 mg/dL ADAM Comment: Interpretive [...] last revised on 2017. Testing performed by: [address] [address] LDL, calculated 112 <=129 mg/dL ADAM Comment: [...] last revised on 2023. Testing performed by: [address] [address] Non-HDL Cholesterol 130 mg/dL ADAM MARIN Comment: [...] last revised on 2017. Testing performed by: [address] [address] Chol/HDL ratio 4 ADAM MARIN Comment:Testing performed by : [address] [address] Blood 03/06/2024 11:1 3 AM DIRECTOR PART 03/06/2024 12:37 PM DIRECTOR PART us Nika Villalobos MD LAB BLOOD ORDERAB LES Final Result ADAM [facility]IN [address] [facility] Department [place] [address] * Comprehensive metabolic panel (03/06/2024 11:13 AM DIRECTOR PART) [facility] Signature Sodium 138 135 - 145 mmol/L Comment:Testing performed by : [address] [address] Potassium, pl 4.1 3.3 - 4.9 mmol/L [facility] Comment:Testing performed by : [address] [address] Chloride 102 97 - 110 mmol/L [facility] Comment:Testing performed by : [address], [place]., [address] CO2 28 22 - 32 mmol/L [facility] Comment:Testing performed by : [address], [place]., [address] Anion gap 8 2 - 15 mmol/L [facility] Comment:Testing performed by : [address], [place]., [address] BUN 14 6 - 25 mg/dL [facility] Comment:Testing performed by : [address], [place]., [address] Creatinine 0.64 0.60 - 1.10 mg/dL [facility] Comment:Testing performed by : [address] [address] Glucose 91 70 - 199 mg/dL [facility] Comment: Interpretive Data Fasting glucose >/= 126 [...] was last revised 2022. Testing performed by: [address] [address] Calcium 9.9 8.5 - 10.3 mg/dL [facility] Comment:Testing performed by : [address] [address] Bilirubin, total 0.2 0.1 - 1.2 mg/dL [facility] Comment:Testing performed by : [address] [address] Protein, pl 7.9 6.5 - 8.5 g/dL ADAM Comment:Testing performed by : [address] [address] Albumin 4.2 3.5 - 5.0 g/dL ADAM Comment:Testing performed by : [address] [address] Alk phos 71 40 - 130 Units/L ADAM Comment:Testing performed by : [address] [address] ALT 15 7 - 45 Units/L ADAM Comment:Testing performed by : [address] [address] AST 28 10 - 45 Units/L ADAM Comment:Testing performed by : [address] [address] Blood 03/06/2024 11:1 3 AM DIRECTOR PART 03/06/2024 12:37 PM DIRECTOR PART Nika Villalobos MD LAB BLOOD ORDERAB LES Final Result [facility] Department [place] [address] * CT Head WO Contrast (02/25/2024 10:03 PM DIRECTOR PART) Anatomical Region Laterality Modality Head and Neck N/A Computed Tomogra phy 02/25/2024 10:2 4 PM DIRECTOR PART Narrative 02/25/2024 10:25 PM DIRECTOR PART EXAM DESCRIPTION: CT HEAD WO CONTRAST REASON [...] 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, 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, 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, [...] signed by Martín GERARD T: Report ID: [id number] Reading Location: [id number] Procedure Note Martín Bolivar MD - 02/25/2024 [...] 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 KH T: Report ID: [id number] Reading Location: [id number] us [facility] XR PROCEDURES Final Resu lt * XR Chest 1 Vw Portable (02/25/2024 8:19 PM DIRECTOR PART) Anatomical Region Laterality Modality Body, Chest N/A Computed Radiogr aphy 02/25/2024 8:55 PM DIRECTOR PART Narrative 02/25/2024 8:55 PM DIRECTOR PART EXAM DESCRIPTION: XR CHEST 1 VIEW REASON [...] signed by Martín GERARD T: Report ID: [id number] Reading Location: [id number] Procedure Note Martín Bolivar MD - 02/25/2024 [...] signed by Martín GERARD T: Report ID: [id number] Reading Location: [id number] us [facility] XR PROCEDURES Final Resu lt * Influenza A/B, RSV, and COVID-19 PCR Nasopharyngeal (02/25/2024 8:12 PM DIRECTOR PART) COVID-19 RNA Negative Negative Influenza A RNA Negative Negative ADAM Influenza B RNA Negative Negative ADAM RSV RNA Negative Negative [facility] Comment: Interpretive data: Testing performed by [facility]. This test is performed using the [employer] Xpert Xpress CoV-2/Flu/RSV plus assay. This is a multiplex, real-time reverse transcriptase PCR assay intended for the qualitative detection of nucleic acid from SARS-CoV-2, influenza A, influenza B, and respiratory syncytial virus. This assay has been cleared by the [place] Food and Drug administration. The performance characteristics have been verified by the [facility]. Results must be considered in the clinical context, and a negative result does not rule out infection. Interpretive Data last revised 2023 Nasopharyngeal 02/25/2024 8: 12 PM DIRECTOR PART 02/25/2024 8:14 PM DIRECTOR PART Narrative [facility] - 02/25/2024 8:54 PM DIRECTOR PART Is the Patient experiencing symptoms consistent with COVID?->Yes us [facility] LAB MICROBIOLOGY - GENERAL O RDERABLES Final Result [facility] [address] [facility] Department [place] [address] * Pap and High Risk HPV, reflex to Genotyping (08/08/2022 9:29 AM CDT) Thin prep (Pap test) 08/08/2022 9:29 AM CDT 08/10/2022 9:29 AM CDT Narrative PATHOLOGY [facility] - 08/16/2022 12:[address] [facility] Department of Pathology [address] [place] [id number] Final Report with Addendum Note to [...] the details. Patient Name: ROSARIO LALA Address: [address] [place] [address] Gender: F : 1990 (Age: 31) Service: Location: N : [id number] [facility] #: [id number] Patient Type: E SPECIMEN Taken: 08/08/2022 Received: 08/10/2022 Accessioned:: 08/11/2022 Reported: 08/16/2022 Physician(s): Cynthia Mota M.D. [facility] Diagnosis: SOURCE OF SPECIMEN SCREENING THIN PREP [...] determined by the Surgical Pathology Department at [facility] as part of an ongoing quality tech program and in compliance with federally mandated [...] characteristics determined by the Surgical Pathology Department [facility]. It has not been cleared or approved by the [place]. Food and Drug Administration. Cynthia Mota MD LAB CYTOLOGY ORDERABLES F inal Result PATHOLOGY [facility] from Last 3 Months or Most Recently Relevant to Health Maintenance Insurance [facility] Advance Directives For more information, please contact: [phone] * Full Code (Latest Code Status on File) Date Activated Date Inactivated Comments 11/19/2020 6:38 PM 11/21/2020 7:29 PM * Full Code Date Activated Date Inactivated Comments 11/19/2020 2:03 AM 11/19/2020 6:38 PM Full CPR in case of cardiopulmonary arrest Care Teams Oceanographic Meteorologist Relationship Specialty Start Date End Date Nika Villalobos MD PCP - General Family Medicine 02/26/19
--- OUTSIDE RECORDS SUMMARY | 2024-05-19 13:56 | XMS_ITS | Encounter Summary ---
Author Organization [facility] Healthcare Address [address] [place] [address] Care Team Providers Care Interior Design Assistant Name Role Phone Nika Villalobos MD Primary Care Pro vider Reason for Visit * Reason Onset Date Comments Concussion 03/04/2024 Encounter Details Date Type Department Care Team ([facility] st Contact Info) Description 03/04/2024 Nurse Triage [facility] Medical Group Primary Care at [address] [phone] Nika Villalobos MD [address] [place] [id number] Social History Tobacco Use Types Packs/Day [...] staff should administer the PHQ-9) 2 12/27/2023 [place] Depression Scale Answer Date Recorded [place] Depression Scale Total 6 11/21/2020 The thought [...] on file Legal Sex Female 4:15 AM CLINICAL EDUCATOR Gender Identity Female 06/27/2021 10:01 AM CDT Sexual Orientation Straight 06/27/2021 10 :01 AM CDT 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 Verbalized understanding. ICAL EDUCATOR * Telephone Encounter - Nika Villalobos MD - 03/04/2024 1:17 PM CST Ok to put on at 10 for ED follow up for concussion ICAL EDUCATOR * Telephone Encounter - Karoline Carmona RN - 03/04/2024 12:08 PM CLINICAL EDUCATOR Patient was seen in ED on 02/25/24 and diagnosed with concussion. She is still having headache (8/10) and ringing of her ears. She states symptoms are not worse but they are not better. wrapper and preserver Disposition: see in office today. No apts today. Offered apt for tomorrow afternoon with [employer] but patient states she works. Patient stated [...] (mTBI) Less Than 14 Days Ago Follow-Up [id number] ICAL EDUCATOR * Telephone Encounter - Karoline Carmona RN - 03/04/2024 12:01 PM CLINICAL EDUCATOR Regarding: Patient seen at ED on 02/25/24 for concussion from fall, no other symptoms. ----- Message from [facility] sent at 03/04/2024 12:01 PM CLINICAL EDUCATOR ----- Symptom Based Call Chief Complaint(s): Patient [...] message need to be routed? Yes-Action Needed ICAL EDUCATOR documented in this encounter Plan of Treatment Not on file documented as of this encounter Visit Diagnoses Not on filedocumented in this encounter Care Teams Interior Design Assistant Relationship Specialty Start Date End Date Nika Villalobos MD PCP - General Family Medicine 02/26/19 documented as of this encounter
[2024-05-19 14:29] VITALS: BP 111/68; PULSE 79; RESP 16; TEMP 36.7; O2SAT 98
== END 2024-05-19 14:29 | disposition home or self-care (01) ==
PROVIDERS: Emergency Provider Physician Assistant; PCP Hospitalist
DX: R51.9 Headache, unspecified (principal); F31.9 Bipolar disorder, unspecified; F20.9 Schizophrenia, unspecified; Z79.899 Other long term (current) drug therapy; V43.52XA Car driver injured in collision with other type car in traffic accident, initial encounter
CPT/HCPCS: 70450; 72125; 72128; 99284; A9270

== ENCOUNTER 2024-06-22 16:47 | Emergency (ER) | payer OTHER, SELFPAY ==
--- NOTE | 2024-06-22 16:50 | ED.GENADULT ---
HPI - General Adult General Chief complaint: Extremity Injury, Lower Stated complaint: Right Foot Numbness/Pain Source: patient, RN notes reviewed and old records reviewed Mode of arrival: ambulatory Limitations: no limitations History of Present Illness HPI narrative: 33-year-old female presents to the [facility] with right foot pain, intermittent tingling. Increased bruising. Patient reports that on the 08 of June she broke her foot unsure where on the foot that she broke bruising is noted to the dorsal aspect worse over 2nd and 3rd metatarsal. Sensation intact. Capillary refill under 2 seconds. Did see an orthopedic provider on the 13 of June. Has a follow-up on the 18 of July. All of her doctors there at [facility] Patient arrived in an Amol wrap, postop shoe as well as on crutches. Related Data Home Medications ?Medication ?Instructions ?Recorded ?Confirmed ?Last Taken ?Type buspirone 15 mg tablet mg 05/06/24 Unknown History citalopram 40 mg tablet mg 05/06/24 Unknown History quetiapine 100 mg tablet mg 05/19/24 Unknown History sumatriptan succinate 100 mg tablet mg PO 05/19/24 Unknown History ergocalciferol (vitamin D2) 1,250 06/22/24 Unknown History mcg (50,000 unit) capsule labetalol 100 mg tablet mg 06/22/24 Unknown History Allergies Allergy/AdvReac Type Severity Reaction Status Date / Time Penicillins Allergy Unknown rash, Verified 06/22/24 16:50 yeast infection strawberry Allergy Unknown Unknown Verified 06/22/24 16:50 BEES/HORNETS Allergy Unknown Unknown Uncoded 06/22/24 16:50 Review of Systems Review of Systems: All systems reviewed & are unremarkable except as noted in HPI and below Constitutional: Constitutional: Reports no additional constitutional complaints ENT: Reports system reviewed and no additional complaints, except as documented Cardiovascular: Cardiovascular: Reports no additional cardiovascular complaints, Denies chest pain and Denies dyspnea Respiratory: Respiratory: Reports no additional respiratory complaints, Denies chest congestion, Denies cough and Denies dyspnea Musculoskeletal: Musculoskeletal: Reports as per HPI Integumentary/Breasts: Skin/Breast: Reports system reviewed and no additional complaints, except as docu [facility] Past Medical History Medical History Depression Schizophrenia Bipolar disorder Back pain Surgical History Surgical History No significant past surgical history Family History Family History Mother Depression Social History Social History Smoking status: Never smoker Tobacco type: cigarettes Second hand tobacco smoke exposure: No Alcohol intake: current Substance use: never Living arrangements: with family Occupation/Education: occupation 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 There is no relevant family history pertinent to the patient complaint. Exam Const: General: cooperative, healthy appearing, comfortable, no acute distress, well developed, alert and well nourished Nutritional Appearance: well nourished Orientation/consciousness: patient oriented x3 Limitations: no limitations HENMT: Head: normal to inspection Eyes: General: appearance normal, both eyes and all related structures Alignment and Position: alignment normal Neck: Neck: normal visual inspection, full ROM, no lymphadenopathy and no meningeal signs Chest: Chest palpation & inspection: normal inspection of the chest Resp: Effort & Inspection: normal respiratory effort and able to speak in complete sentences Cardio: Rate: regular rate Skin: General skin exam: normal color and no rashes or lesions noted Neuro: General: patient oriented x3, moves all extremities and no meningeal signs Cognition (Neuro): normal cognition Speech: normal speech Gait exam (Neuro): Assisted gait required crutches Extrem: General: normal to inspection, full ROM, capillary refill normal and normal gait Right lower extremity: foot Details: normal capillary refill, tenderness (Dorsal foot), toes with normal ROM, ecchymosis (Dorsal distal) and vascular exam Details: dorsalis pedis pulse present and normal capillary refill Psych: Appearance: grossly normal and well kempt Mental Status: mental status grossly normal Speech and movement: Normal speech and movement present and Clear speech present Affect: normal affect Attitude: cooperative Course Course Level of Care: Express Care Visit Vital Signs Vital signs: Vital Signs Temperature 97.8 F 06/22/24 16:54 Pulse Rate 88 06/22/24 16:54 Respiratory Rate 18 06/22/24 16:54 Blood Pressure 132/58 L 06/22/24 16:54 Pulse Oximetry 99 06/22/24 16:54 Oxygen Delivery Room Air 06/22/24 16:54 Temperature 97.8 F 06/22/24 16:54 Pulse Rate 88 06/22/24 16:54 Respiratory Rate 18 06/22/24 16:54 Blood Pressure 132/58 L 06/22/24 16:54 Pulse Oximetry 99 06/22/24 16:54 Oxygen Delivery Room Air 06/22/24 16:54 Reviewed Medical Decision Making MDM Narrative Medical decision making narrative: Patient sitting comfortably in exam room. Nontoxic, vitals stable. Patient in no acute distress Patient presents with ongoing pain, tingling in her toes. Has had some increased bruising post foot fracture on the 08 of June. Has a follow-up with primary care provider, normally seen at [facility]. Patient appropriate for outpatient treatment with close follow-up Discharge instructions reviewed with patient, as well as provided in writing per nursing staff. The instructions also include specific and strict return/GO TO THE ER as well as f/u information. All questions have been answered, and the patient deny any further questions with discharge and discharge plan. Some parts of this dictation were generated by voice recognition software and may contain typographical and/or grammatical inaccuracies. Differential Diagnosis Differential Diagnosis: History of foot fracture, contusion, intermittent pain Medical Records Medical records reviewed: Yes I reviewed the external patient's medical records. Vital Signs Vital Signs: Vital Signs Temperature 97.8 F 06/22/24 16:54 Pulse Rate 88 06/22/24 16:54 Respiratory Rate 18 06/22/24 16:54 Blood Pressure 132/58 L 06/22/24 16:54 Pulse Oximetry 99 06/22/24 16:54 Oxygen Delivery Room Air 06/22/24 16:54 Temperature 97.8 F 06/22/24 16:54 Pulse Rate 88 06/22/24 16:54 Respiratory Rate 18 06/22/24 16:54 Blood Pressure 132/58 L 06/22/24 16:54 Pulse Oximetry 99 06/22/24 16:54 Oxygen Delivery Room Air 06/22/24 16:54 Reviewed Lab Data Lab results reviewed: Yes I reviewed the patient's lab results. Labs: Reviewed Critical Care Time Critical Care Time Critical Care Time: No Discharge Plan Discharge Clinical Impression: Acute foot pain, History of foot fracture, Traumatic ecchymosis of right foot Patient Disposition: Home Condition: Stable Instructions: Antibiotic Form, Foot Fracture in Adults (ED) Additional Instructions: Continue directions from your orthopedic. Continue to rest, ice and elevate. Follow up as already scheduled but if symptoms get worse please call your orthopedic a and discuss with them. Patient Language: Wolof Prescriptions: No Action citalopram 40 mg tablet buspirone 15 mg tablet sumatriptan succinate 100 mg tablet PO quetiapine 100 mg tablet ergocalciferol (vitamin D2) 1,250 mcg (50,000 unit) capsule labetalol 100 mg tablet cyclobenzaprine 10 mg tablet 10 mg PO TID PRN (Reason: muscle spasm) Qty: 14 0RF Follow-up/Referrals: Wilfredo,Nika Dobson MD [Primary Care Provider] - 1 Week ([facility] care follow up ) Time of Disposition: 17:02
[2024-06-22 16:54] VITALS: BP 132/58; PULSE 88; RESP 18; TEMP 36.6; O2SAT 99
== END 2024-06-22 17:05 | disposition home or self-care (01) ==
PROVIDERS: Emergency Provider Nurse Practitioner; PCP Hospitalist
DX: S92.901A Unspecified fracture of right foot, initial encounter for closed fracture (principal); X58.XXXA Exposure to other specified factors, initial encounter
CPT/HCPCS: 99212; G0463